=== PATIENT | male | born 1940 | race Caucasian/White ===

== ENCOUNTER 2016-11-30 01:27 | Emergency (ER) | payer MEDICARE, OTHER ==
[2016-11-30 02:08] LABS: CHLORIDE,CL 109 mmol/L (101-111); SODIUM,NA 143 mmol/L (135-145)
[2016-11-30] MEDS ORDERED: Metoprolol Tartrate 50 MG Tab PO ONE (02:27)
--- NOTE | 2016-11-30 02:34 | EDM.PDOC ---
ED HPI GENERAL MEDICAL PROBLEM - General Chief Complaint: Chest Pain Stated Complaint: ACID REFLUX, HEART RACING Time Seen by Provider: 11/30/16 01:40 Source of Information: Reports: Patient History Limitations: Reports: No Limitations - History of Present Illness INITIAL COMMENTS - FREE TEXT/NARRATIVE: c/o fast heart rate of 105 since 1030am and chest pain 2-08/27. States he was in clinic today and told nurse about it as is process of also being set up for studies for "acid reflux" He has been seen by cardiology 2-3 years ago for similar symptoms and was told to take 12.5mg of metoprolol when sx occur but has never taken Rx. Prior stress test in 2013 was negative and was told did not need to be seen again for at least 2 years. Tolerance for activity has not changed. States usually they do not last this long and have been relieved with vagal maneuver or drinking glass of ice water. Chest pain mid sternal , does not radiate. No sweating or nausea Pain constant and does not change with activity. Notes more prone to acid reflux every time he lies down at night and discomfort today is similar. Chest Pain Score (Numeric/FACES): 3 - Related Data Allergies Allergy/AdvReac Type Severity Reaction Status Date / Time No Known Allergies Allergy Verified 11/30/16 01:39 Home Meds: Home Meds Omeprazole [Prilosec] 40 mg PO BEDTIME 05/25/13 [History] Aspirin [Adult Low Dose Aspirin EC] 162.5 mg PO DAILY 11/03/13 [History] atorvaSTATin [Lipitor] 10 mg PO BEDTIME 11/03/13 [History] Multivitamin [Multiple Vitamins] 1 each PO DAILY 11/20/14 [History] Omeprazole 20 mg PO QAM 11/03/15 [History] Past Medical History HEENT History: Reports: Impaired Vision Other HEENT History: Wear corrective lenses Cardiovascular History: Reports: Afib, Arrhythmia, High Cholesterol Other Cardiovascular History: stress test Respiratory History: Reports: None Gastrointestinal History: Reports: GERD Genitourinary History: Reports: None Musculoskeletal History: Reports: None Neurological History: Reports: Other (See Below) Other Neuro History: Has had several CT's in past for left sided numbness, no Dx. Psychiatric History: Reports: None Endocrine/Metabolic History: Reports: None Hematologic History: Reports: None Immunologic History: Reports: None Oncologic (Cancer) History: Reports: None Dermatologic History: Reports: None - Past Surgical History GI Surgical History: Reports: Appendectomy, Cholecystectomy, Colonoscopy Social & Family History - Family History HEENT: Reports: None Cardiac: Reports: CAD Respiratory: Reports: None GI: Reports: None Musculoskeletal: Reports: None Neurological: Reports: None Psychiatric: Reports: None Endocrine/Metabolic: Reports: None Hematologic: Reports: None Immunologic: Reports: None Dermatologic: Reports: None Oncologic: Reports: None - Tobacco Use Smoking Status *Q: Never Smoker Second Hand Smoke Exposure: No - Caffeine Use Caffeine Use: Reports: Coffee, Soda Other Caffeine Use: none since Tuesday - Alcohol Use Days Per Week of Alcohol Use: 1 Number of Drinks Per Day: 2 Total Drinks Per Week: 2 - Recreational Drug Use Recreational Drug Use: No - Living Situation & Occupation Living situation: Reports: , with Spouse Occupation: Retired ED ROS GENERAL - Review of Systems Review Of Systems: See Below Constitutional: Reports: No Symptoms HEENT: Reports: No Symptoms Respiratory: Reports: No Symptoms Cardiovascular: Reports: Chest Pain, Other (rapid heart rate at 105) GI/Abdominal: Reports: No Symptoms Musculoskeletal: Reports: No Symptoms Skin: Reports: No Symptoms Neurological: Reports: No Symptoms Psychiatric: Reports: No Symptoms ED EXAM, GENERAL - Physical Exam Exam: See Below Exam Limited By: No Limitations General Appearance: Alert, No Apparent Distress, Anxious Eye Exam: Bilateral Eye: EOMI, PERRL Ears: Normal External Exam, Normal TMs Nose: Normal Inspection Throat/Mouth: Normal Inspection Head: Atraumatic, Normocephalic Neck: Normal Inspection. No: Carotid Bruit, Thyromegaly Respiratory/Chest: No Respiratory Distress, Lungs Clear, Normal Breath Sounds Cardiovascular: Normal Peripheral Pulses, Regular Rate, Rhythm, Tachycardia (98- 105 on admission) GI/Abdominal: Normal Bowel Sounds Back Exam: Full Range of Motion Extremities: Normal Inspection. No: Pedal Edema Neurological: Alert, Oriented, Normal Cognition Psychiatric: Normal Affect, Normal Mood, Anxious Skin Exam: Warm, Dry, Intact, Normal Color Course - Vital Signs Last Recorded V/S: Last Vital Signs Temp 96.8 F 11/30/16 01:39 Pulse 79 11/30/16 02:34 Resp 16 11/30/16 02:19 BP 131/71 11/30/16 02:34 Pulse Ox 98 11/30/16 02:19 - Orders/Labs/Meds Orders: Active Orders 24 hr Category Date Time Status EKG 12 Lead [EKG Documentation Completion] [RC] STAT Care 11/30/16 01:48 Active Labs: Laboratory Tests 11/30/16 11/30/16 Range/Units 01:43 01:43 WBC 5.7 (5.0-10.0) 10^3/uL RBC 4.10 L (4.6-6.2) 10^6/uL Hgb 13.2 L (14.0-18.0) g/dL Hct 38.5 L (40.0-54.0) % MCV 93.9 (80-100) fL MCH 32.2 (27.0-34.0) pg MCHC 34.3 (33.0-35.0) g/dL Plt Count 157 (150-450) 10^3/uL Neut % (Auto) 55.4 (42.2-75.2) % Lymph % (Auto) 28.9 (20.5-50.1) % Noble % (Auto) 11.6 H (2-8) % Eos % (Auto) 3.9 H (1.0-3.0) % Baso % (Auto) 0.2 (0.0-1.0) % Sodium 143 (135-145) mmol/L Potassium 4.0 (3.6-5.0) mmol/L Chloride 109 (101-111) mmol/L Carbon Dioxide 25.0 (21.0-31.0) mmol/L Anion Gap 13.0 BUN 22 H (7-18) mg/dL Creatinine 1.0 (0.6-1.3) mg/dL Est Cr Clr Drug Dosing 69.03 mL/min Estimated GFR (MDRD) > 60 BUN/Creatinine Ratio 22.00 Glucose 104 (74-105) mg/dL Calcium 9.2 (8.4-10.2) mg/dl Total Bilirubin 0.7 (0.2-1.0) mg/dL AST 27 (10-42) IU/L ALT 27 (10-60) IU/L Alkaline Phosphatase 66 (42-121) IU/L Troponin I < 0.02 (0.00-0.02) ng/ml Total Protein 6.7 (6.7-8.2) g/dl Albumin 4.2 (3.2-5.5) g/dl Globulin 2.5 Albumin/Globulin Ratio 1.68 Meds: Medications Discontinued Medications Generic Name Dose Route Start Last Admin Trade Name Franky PRN Reason Stop Dose Admin Metoprolol Tartrate 12.5 mg 11/30/16 02:27 11/30/16 02:34 Lopressor PO 11/30/16 02:28 12.5 mg ONETIME ONE Administration - Radiology Interpretation Free Text/Narrative:: CXR no active disease with comment of ectatic aorta. Comparison with previous on 07/06/2015 - Re-Assessments/Exams Free Text/Narrative Re-Assessment/Exam: 11/30/16 03:40 EKG reviewed with patient and reassurance no critical abnormality. HR decreased 70's and maintained. Pain resolved with decreased HR. Labs unremarkable. Troponin negative. Initiated on low dose metoprolol. Instructed patient to follow up if recurrent pain associated with sweating or nausea. Departure - Departure Time of Disposition: 02:28 Disposition: Home, Self-Care 01 Condition: good Clinical Impression: Anxiety, Tachycardia, Chest discomfort Instructions: Nonspecific Chest Pain, Sinus Tachycardia Referrals: Mt Yung MD [Primary Care Provider] - Forms: ED Department Discharge Additional Instructions: metoprolol 12.5mg daily follow with Dr. Yung this week for recheck follow up sooner if SOB, chest pain and continued fast heart rate keep hydrated limit caffeine use - My Orders Last 24 Hours: My Active Orders 11/30/16 01:48 EKG 12 Lead [EKG Documentation Completion] [RC] STAT - Assessment/Plan Last 24 Hours: My Active Orders 11/30/16 01:48 EKG 12 Lead [EKG Documentation Completion] [RC] STAT
[2016-11-30 02:35] VITALS: BP 131/71
--- NOTE | 2016-12-01 13:41 | EKG ---
11/30/2016- AYE RAMIREZ - EKG per my reading shows sinus rhythm at a rate of 99. [facility] /[id number]
== END 2016-11-30 02:46 | disposition home or self-care (01) ==
LOC: DL.ED 01:27
DX: R00.0 Tachycardia, unspecified (principal); R07.89 Other chest pain; F41.9 Anxiety disorder, unspecified; K21.9 Gastro-esophageal reflux disease without esophagitis; I48.91 Unspecified atrial fibrillation; E78.00 Pure hypercholesterolemia, unspecified; Z79.82 Long term (current) use of aspirin; Z79.899 Other long term (current) drug therapy; Z90.49 Acquired absence of other specified parts of digestive tract
CPT/HCPCS: 36415; 71010; 80053; 84484; 85025; 93005; 93010; 99283; 99285; A9270

== ENCOUNTER 2016-12-28 06:04 | Day surgery (SDC) | payer MEDICARE, OTHER ==
[~2016-12-28 06:04] MED LIST: Dextrose 5%-0.45% NaCl 1,000 ML IV SCH; Sodium Chloride 0.9% 10 ML Syringe FLUSH PRN
[2016-12-28] MEDS ORDERED: fentaNYL 100 MCG/2 ML SDV ONE (06:12)
[2016-12-28] MEDS ORDERED: Midazolam 1 MG/ML 2 ML SDV ONE (06:12)
[2016-12-28] MEDS ORDERED: fentaNYL 100 MCG/2 ML SDV IV ONE ×3 (07:36→14:44)
[2016-12-28] MEDS ORDERED: Midazolam 1 MG/ML 2 ML SDV IV ONE ×6 (07:37→14:44)
[2016-12-28 08:25] VITALS: BP 137/74
--- NOTE | 2016-12-28 13:28 | OR ---
DATE: 12/28/2016 PROCEDURE: Total colonoscopy. INSTRUMENT USED: CF-H180AL Olympus video colonoscope. PREMEDICATIONS: Fentanyl 100 mcg intravenous, Versed 3 mg intravenous. Nasal 2 L O2 cannula. The procedure was done under pulse oximetry, BP recording, and facilities custodian. INDICATION: The patient with previous colonic adenoma. Surveillance colonoscopic examination is done for detection of any polypoid lesions and removal, endoscopic hemostasis therapy if needed. Initial rectal exam was unremarkable. Rigid anoscopy was normal. DESCRIPTION OF PROCEDURE: The colonoscope was passed with ease. Numerous scattered diverticula were noted in the distal left colon. The scope was passed with ease up to the ileocecal area, photographs were taken of the normal- appearing cecum, identified by landmarks of appendiceal orifice and double- bulged ileocecal folds. No bleeding was noted from any of the visualized areas at the commencement of the examination. No stricture. No vascular ectasia. No large isolated ulceration seen. No evidence of diffuse inflammatory bowel disease in the form of friability, contact bleeding, or ulcerations. No polyp or tumor mass identified. Probing the proximal sides of folds and flexures using adequate distention and clearing up the stool material, withdrawal of the scope was made, cecum to rectum time over 6 minutes. No bleeding was noted from any of the visualized areas at the completion of examination. IMPRESSION: Diverticulosis. The patient tolerated the procedure well. [facility] /[id number]
== END 2016-12-28 09:57 | disposition home or self-care (01) ==
LOC: DL.ENDO 06:04
PROVIDERS: ATTEND Internal Medicine Gastroenterology
DX: Z12.11 Encounter for screening for malignant neoplasm of colon (principal); Z85.038 Personal history of other malignant neoplasm of large intestine; K57.30 Diverticulosis of large intestine without perforation or abscess without bleeding; K21.9 Gastro-esophageal reflux disease without esophagitis; F41.1 Generalized anxiety disorder
CPT/HCPCS: G0105; J2250; J3010; J7042

== ENCOUNTER 2017-05-24 09:30 | Emergency (ER) | payer MEDICARE, OTHER ==
--- NOTE | 2017-05-24 09:46 | EDM.PDOC ---
ED HPI GENERAL MEDICAL PROBLEM - General Chief Complaint: Neuro Symptoms/Deficits Stated Complaint: LOWER ARM/SHOULDER/HAND NUMB, [id number] Time Seen by Provider: 05/24/17 09:45 Source of Information: Reports: Patient, Old Records, RN, RN Notes Reviewed History Limitations: Reports: No Limitations - History of Present Illness INITIAL COMMENTS - FREE TEXT/NARRATIVE: Arrives from home by POV with c/o that he woke this morning on his left side and since waking feels numbness from the left shoulder and scapula to the left 4th & 5th fingers. Denies neck pain or injury. Has history of chronic left sided numbness that he has had extensive evaluation for, and even went to [facility] in [place], but no one could ever determine why he has it. The numbness he c/ o today is different in that it only goes to the 4th & 5th fingers. Denies any motor weakness, headache, facial droop, visual changes, speech changes, or difficulty swallowing. Denies any left torso or lower extremity numbness that is different from his baseline. Onset: Today Duration: Constant Quality: Reports: Other (numbness only, no pain) Severity: Moderate Improves with: Reports: None Worsens with: Reports: None Associated Symptoms: Reports: No Other Symptoms - Related Data Allergies Allergy/AdvReac Type Severity Reaction Status Date / Time No Known Allergies Allergy Verified 05/24/17 09:43 Home Meds: Home Meds Omeprazole [Prilosec] 40 mg PO ACBREAKFAST 05/25/13 [History] Aspirin [Adult Low Dose Aspirin EC] 162.5 mg PO BID 11/03/13 [History] atorvaSTATin [Lipitor] 10 mg PO BEDTIME 11/03/13 [History] Multivitamin [Multiple Vitamins] 1 each PO DAILY 11/20/14 [History] Omeprazole 20 mg PO BEDTIME 11/03/15 [History] Nitroglycerin [IJP: Nitroglycerin] 1 tab SL ASDIRECTED 12/24/16 [History] Past Medical History HEENT History: Reports: Impaired Vision Other HEENT History: Wear corrective lenses Cardiovascular History: Reports: Afib, Arrhythmia, CAD, High Cholesterol Other Cardiovascular History: stress test Respiratory History: Reports: None Gastrointestinal History: Reports: Colon Polyp, Diverticulosis, GERD, Irritable Bowel Syndrome, Other (See Below) Other Gastrointestinal History: GASTRIC EROSIONS. 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 Psychiatric History: Reports: Anxiety, Panic Attack Endocrine/Metabolic History: Reports: None Hematologic History: Reports: Anemia Immunologic History: Reports: None Oncologic (Cancer) History: Reports: None Dermatologic History: Reports: None - Infectious Disease History Infectious Disease History: Reports: Chicken Pox, Measles, Mumps - Past Surgical History GI Surgical History: Reports: Appendectomy, Cholecystectomy, Colonoscopy, EGD Other GI Surgeries/Procedures: hemorrohid repair Social & Family History - Family History HEENT: Reports: None Cardiac: Reports: CAD Respiratory: Reports: None GI: Reports: None Musculoskeletal: Reports: None Neurological: Reports: None Psychiatric: Reports: None Endocrine/Metabolic: Reports: None Hematologic: Reports: None Immunologic: Reports: None Dermatologic: Reports: None Oncologic: Reports: None - Tobacco Use Smoking Status *Q: Never Smoker Second Hand Smoke Exposure: No - Caffeine Use Caffeine Use: Reports: Coffee, Soda Other Caffeine Use: none since Tuesday - Alcohol Use Days Per Week of Alcohol Use: 1 Number of Drinks Per Day: 2 Total Drinks Per Week: 2 - Recreational Drug Use Recreational Drug Use: No - Living Situation & Occupation Living situation: Reports: , with Spouse Occupation: Retired ED ROS GENERAL - Review of Systems Review Of Systems: ROS reveals no pertinent complaints other than HPI. ED EXAM, NEURO - Physical Exam Exam: See Below Exam Limited By: No Limitations General Appearance: Alert, WD/WN, No Apparent Distress, Anxious Eye Exam: Bilateral Eye: EOMI, Normal Inspection, PERRL Ears: Normal External Exam, Hearing Grossly Normal Nose: Normal Inspection Throat/Mouth: Normal Inspection, Normal Voice Head Exam: Atraumatic, Normocephalic Neck: Normal Inspection, Supple, Non-Tender, Full Range of Motion. No: Lymphadenopathy (L), Lymphadenopathy (R) Respiratory/Chest: No Respiratory Distress, Lungs Clear, Normal Breath Sounds, No Accessory Muscle Use, Chest Non-Tender Cardiovascular: Normal Peripheral Pulses, Regular Rate, Rhythm Neurological: Alert, Normal Dorsiflexion, CN II-XII Intact, Normal Plantar Flexion, Normal Gait, Oriented x 3, Abnormal Sensation (in ulnar nerve distrbution of the left upper extremity including the 4th & 5th digits). No: Tremor Back Exam: Normal Inspection, Full Range of Motion Extremities: Normal Inspection, Normal Range of Motion, Non-Tender, No Pedal Edema, Normal Capillary Refill Psychiatric: Anxious Skin Exam: Warm, Dry, Intact, Normal Color, No Rash Course - Vital Signs Last Recorded V/S: Last Vital Signs Temp 37.0 C 05/24/17 09:45 Pulse 80 05/24/17 09:45 Resp 18 05/24/17 09:45 BP 130/70 05/24/17 09:45 Pulse Ox 100 05/24/17 09:45 - Orders/Labs/Meds Orders: Active Orders 24 hr Category Date Time Status Cervical Spine 2V or 3V [CR] Urgent Exams 05/24/17 09:58 Ordered - Radiology Interpretation Free Text/Narrative:: Xray C-spine: no fx's, chronic degenerative changes/DDD; See Rad. report. Departure - Departure Time of Disposition: 10:19 Disposition: Home, Self-Care 01 Condition: Good Clinical Impression: Cervical radiculopathy due to degenerative joint disease of spine - Discharge Information Instructions: Cervical Radiculopathy, [id number], Degenerative Disk Disease Forms: ED Department Discharge Additional Instructions: Activity as tolerated. Follow up in clinic with your primary doctor if the numbness is persistent or worsens. - My Orders Last 24 Hours: My Active Orders 05/24/17 09:58 Cervical Spine 2V or 3V [CR] Urgent - Assessment/Plan Last 24 Hours: My Active Orders 05/24/17 09:58 Cervical Spine 2V or 3V [CR] Urgent
[2017-05-24 09:47] VITALS: BP 130/70
--- NOTE | 2017-05-24 10:25 | CR ---
Clinical history: 77-year-old male with left upper extremity radiculopathy who was reported on previo us MRI exam 12 December 2014 to have "multilevel degenerative changes with no spinal cord compression (ne ural foraminal stenosis most significant on the right at the C5-6 level). Multi facet joint arthropat hy." Interpretation: Abnormal. Dense reactive atlantoaxial sclerosis. No sign of pathologic skeletal lesion, prevertebral soft tissue swelling, cervical fracture or spondy lolisthesis. Extensive facet joint arthropathy (dense reactive sclerosis and narrowing of the joints) nearly all l evels. *Abnormal interspace narrowing, endplate sclerosis and hypertrophic marginal/uncinate spondylosis C5- 6 and C6-C7 levels. No cervical rib anomalies. Lung apices clear. 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 No fract ure or dislocation.
== END 2017-05-24 10:26 | disposition home or self-care (01) ==
LOC: DL.ED 09:30
DX: M47.22 Other spondylosis with radiculopathy, cervical region (principal); E78.00 Pure hypercholesterolemia, unspecified; Z79.82 Long term (current) use of aspirin; Z79.899 Other long term (current) drug therapy
CPT/HCPCS: 72040; 99283

== ENCOUNTER 2017-10-12 20:46 | Emergency (ER) | payer MEDICARE, OTHER ==
--- NOTE | 2017-10-12 21:22 | EDM.PDOC ---
<Tom Thomas - Last Filed: 10/13/17 00:48> ED HPI GENERAL MEDICAL PROBLEM - General Chief Complaint: Cardiovascular Problem Stated Complaint: [id number] LONG PAUSE IN HEART BEATS Time Seen by Provider: 10/12/17 21:00 Source of Information: Reports: Patient History Limitations: Reports: No Limitations - History of Present Illness INITIAL COMMENTS - FREE TEXT/NARRATIVE: Patient presents with feeling like his heart is skipping a beat. This began this evening. He reports he had a busy day, only eating breakfast. He was active all day. He had one beer before leaving an event and one mixed drink this evening. Following this he went to the bathroom and noted an abnormal heart beat. He was concerned because he has a history of a tachyarrhythmia and has been on metoprolol for this. He reports he took his pulse and noted it to have intermittent pauses which he has not had before. He denies lightheadedness or dizziness. No syncope. No chest pain or shortness of breath. No symptoms with exertion. No history of heart attack or stroke. Family history of heart attack at early age in his father. - Related Data Allergies Allergy/AdvReac Type Severity Reaction Status Date / Time No Known Allergies Allergy Verified 10/12/17 21:44 Home Meds: Home Meds Omeprazole [Prilosec] 40 mg PO ACBREAKFAST 05/25/13 [History] Aspirin [Adult Low Dose Aspirin EC] 162.5 mg PO BID 11/03/13 [History] atorvaSTATin [Lipitor] 10 mg PO BEDTIME 11/03/13 [History] Multivitamin [Multiple Vitamins] 1 each PO DAILY 11/20/14 [History] Omeprazole 20 mg PO BEDTIME 11/03/15 [History] Nitroglycerin [IJP: Nitroglycerin] 1 tab SL ASDIRECTED 12/24/16 [History] Metoprolol Succinate [Toprol XL] 25 mg PO DAILY 10/12/17 [History] Past Medical History HEENT History: Reports: Impaired Vision Other HEENT History: Wear corrective lenses Cardiovascular History: Reports: Afib, Arrhythmia, CAD, High Cholesterol Other Cardiovascular History: stress test Respiratory History: Reports: None Gastrointestinal History: Reports: Colon Polyp, Diverticulosis, GERD, Irritable Bowel Syndrome, Other (See Below) Other Gastrointestinal History: GASTRIC EROSIONS. 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 Psychiatric History: Reports: Anxiety, Panic Attack Endocrine/Metabolic History: Reports: None Hematologic History: Reports: Anemia Immunologic History: Reports: None Oncologic (Cancer) History: Reports: None Dermatologic History: Reports: None - Infectious Disease History Infectious Disease History: Reports: Chicken Pox, Measles, Mumps - Past Surgical History GI Surgical History: Reports: Appendectomy, Cholecystectomy, Colonoscopy, EGD Other GI Surgeries/Procedures: hemorrohid repair Social & Family History - Family History Family Medical History: Noncontributory HEENT: Reports: None Cardiac: Reports: CAD Respiratory: Reports: None GI: Reports: None Musculoskeletal: Reports: None Neurological: Reports: None Psychiatric: Reports: None Endocrine/Metabolic: Reports: None Hematologic: Reports: None Immunologic: Reports: None Dermatologic: Reports: None Oncologic: Reports: None - Tobacco Use Smoking Status *Q: Never Smoker Second Hand Smoke Exposure: No - Caffeine Use Caffeine Use: Reports: Coffee, Soda Other Caffeine Use: none since Tuesday - Alcohol Use Days Per Week of Alcohol Use: 1 Number of Drinks Per Day: 2 Total Drinks Per Week: 2 - Recreational Drug Use Recreational Drug Use: No - Living Situation & Occupation Living situation: Reports: , with Spouse Occupation: Retired ED ROS GENERAL - Review of Systems Review Of Systems: ROS reveals no pertinent complaints other than HPI. ED EXAM, GENERAL - Physical Exam Exam: See Below Exam Limited By: No Limitations General Appearance: Alert, WD/WN, No Apparent Distress Ears: Normal External Exam, Normal Canal, Hearing Grossly Normal Nose: Normal Inspection, Normal Mucosa, No Blood Throat/Mouth: Normal Inspection, Normal Lips, Normal Oropharynx, No Airway Compromise Head: Atraumatic, Normocephalic Neck: Normal Inspection, Supple, Non-Tender, Full Range of Motion Respiratory/Chest: No Respiratory Distress, Lungs Clear, Normal Breath Sounds, No Accessory Muscle Use, Chest Non-Tender Cardiovascular: Regular Rate, Rhythm, No Murmur GI/Abdominal: Normal Bowel Sounds, Soft, Non-Tender, No Distention (Male) Exam: Deferred Back Exam: Normal Inspection. No: Muscle Spasm Extremities: Normal Inspection, Non-Tender Neurological: Alert, Oriented, CN II-XII Intact Psychiatric: Normal Affect, Normal Mood Skin Exam: Warm, Dry, Intact Lymphatic: No Adenopathy EKG INTERPRETATION EKG Date: 10/12/17 Time: 20:54 Rhythm: NSR Rate (Beats/Min): 77 EKG Interpretation Comments: Two PVC's present. Course - Vital Signs Last Recorded V/S: Last Vital Signs Temp 98.6 F 10/13/17 01:59 Pulse 79 10/13/17 01:59 Resp 16 10/13/17 01:59 BP 143/74 H 10/13/17 01:59 Pulse Ox 99 10/13/17 01:59 - Orders/Labs/Meds Labs: Laboratory Tests 10/12/17 10/12/17 10/12/17 Range/Units 21:32 21:32 21:32 WBC 6.4 (5.0-10.0) 10^3/uL RBC 3.98 L (4.6-6.2) 10^6/uL Hgb 12.8 L (14.0-18.0) g/dL Hct 37.5 L (40.0-54.0) % MCV 94.2 (80-100) fL MCH 32.2 (27.0-34.0) pg MCHC 34.1 (33.0-35.0) g/dL Plt Count 143 L (150-450) 10^3/uL Neut % (Auto) 54.4 (42.2-75.2) % Lymph % (Auto) 31.0 (20.5-50.1) % [place] % (Auto) 11.1 H (2-8) % Eos % (Auto) 3.3 H (1.0-3.0) % Baso % (Auto) 0.2 (0.0-1.0) % Sodium 138 (135-145) mmol/L Potassium 3.2 L (3.6-5.0) mmol/L Chloride 107 (101-111) mmol/L Carbon Dioxide 25.0 (21.0-31.0) mmol/L Anion Gap 9.2 BUN 20 H (7-18) mg/dL Creatinine 1.0 (0.6-1.3) mg/dL Est Cr Clr Drug Dosing 70.06 mL/min Estimated GFR (MDRD) > 60 BUN/Creatinine Ratio 20.00 Glucose 92 (74-105) mg/dL Calcium 8.9 (8.4-10.2) mg/dl Magnesium 2.1 (1.8-2.5) mg/dL Total Bilirubin 0.8 (0.2-1.0) mg/dL AST 27 (10-42) IU/L ALT 27 (10-60) IU/L Alkaline Phosphatase 51 (42-121) IU/L Troponin I < 0.02 (0.00-0.02) ng/ml Total Protein 7.0 (6.7-8.2) g/dl Albumin 4.2 (3.2-5.5) g/dl Globulin 2.8 Albumin/Globulin Ratio 1.50 04/26/18 Range/Units 01:30 WBC (5.0-10.0) 10^3/uL RBC (4.6-6.2) 10^6/uL Hgb (14.0-18.0) g/dL Hct (40.0-54.0) % MCV (80-100) fL MCH (27.0-34.0) pg MCHC (33.0-35.0) g/dL Plt Count (150-450) 10^3/uL Neut % (Auto) (42.2-75.2) % Lymph % (Auto) (20.5-50.1) % [place] % (Auto) (2-8) % Eos % (Auto) (1.0-3.0) % Baso % (Auto) (0.0-1.0) % Sodium (135-145) mmol/L Potassium 3.8 (3.6-5.0) mmol/L Chloride (101-111) mmol/L Carbon Dioxide (21.0-31.0) mmol/L Anion Gap BUN (7-18) mg/dL Creatinine (0.6-1.3) mg/dL Est Cr Clr Drug Dosing mL/min Estimated GFR (MDRD) BUN/Creatinine Ratio Glucose (74-105) mg/dL Calcium (8.4-10.2) mg/dl Magnesium (1.8-2.5) mg/dL Total Bilirubin (0.2-1.0) mg/dL AST (10-42) IU/L ALT (10-60) IU/L Alkaline Phosphatase (42-121) IU/L Troponin I < 0.02 (0.00-0.02) ng/ml Total Protein (6.7-8.2) g/dl Albumin (3.2-5.5) g/dl Globulin Albumin/Globulin Ratio Meds: Medications Discontinued Medications Generic Name Dose Route Start Last Admin Trade Name Freq PRN Reason Stop Dose Admin Potassium Chloride 20 meq 10/12/17 22:01 10/12/17 22:16 Klor-Con 10 PO 10/12/17 22:02 20 meq ONETIME ONE Administration - Re-Assessments/Exams Free Text/Narrative Re-Assessment/Exam: Extended ED visit. Benny shen. Telemetry. 10/13/17 00:49 Departure - Departure Disposition: Home, Self-Care 01 Clinical Impression: Heart palpitations, Hypokalemia Instructions: Hypokalemia Referrals: Miracle Whitney PA [Primary Care Provider] - Forms: ED Department Discharge Additional Instructions: light activity follow up in clinic Tuesday to recheck potassium Urgent follow up if chest pain <Lisbeth Andres - Last Filed: 10/13/17 05:39> Course - Re-Assessments/Exams Free Text/Narrative Re-Assessment/Exam: 10/13/17 05:37 Repeat troponin negative. Remains pain free. Has not noted recent palpations. Departure - Departure Time of Disposition: 02:20 Condition: Good
[2017-10-12 21:53] LABS: CHLORIDE,CL 107 mmol/L (101-111); SODIUM,NA 138 mmol/L (135-145)
[2017-10-12] MEDS: Potassium Chloride 10 MEQ Tab.ER PO ONE (22:16)
[2017-10-13 02:00] VITALS: BP 143/74
--- NOTE | 2017-10-17 09:50 | EKG ---
10/12/2017 - AYE RAMIREZ - FINDINGS: This 12-lead EKG shows normal sinus rhythm with no significant ST elevation or ST depression noted on this 12-lead EKG. Nonspecific ST-T wave changes noted on leads aVL and aVF with possible premature ventricular complexes. Heart rate of 77, TX interval of 204, QTc 453. [facility] /[id number]
== END 2017-10-13 02:30 | disposition home or self-care (01) ==
LOC: DL.ED 20:46
DX: R00.2 Palpitations (principal); E87.6 Hypokalemia; I48.91 Unspecified atrial fibrillation; Z79.899 Other long term (current) drug therapy
CPT/HCPCS: 36415; 80053; 83735; 84132; 84484; 85025; 99284; A9270

== ENCOUNTER 2017-10-17 13:05 | Emergency (ER) | payer MEDICARE, OTHER ==
[2017-10-17 14:17] VITALS: BP 133/71
--- NOTE | 2017-10-17 15:01 | EDM.PDOC ---
ED HPI GENERAL MEDICAL PROBLEM - General Chief Complaint: Neuro Symptoms/Deficits Stated Complaint: LEFT ARM NUMB Time Seen by Provider: 10/17/17 14:16 Source of Information: Reports: Patient History Limitations: Reports: No Limitations - History of Present Illness INITIAL COMMENTS - FREE TEXT/NARRATIVE: This 77 yo male patient reports to the ED with left sided arm numbness. The patient reports that he woke up this morning with bilateral arm numbness. The patient reports his right arm feels better now, but continues to have a little numbness in his left arm. The patient reports that he was seen in the ED last week for a lower potassium level. The patient reports that he does not have any additional symptoms at this time. Onset: Today Onset Date: 10/17/17 Onset Time: 08:00 Duration: Constant, Improving Location: Reports: Upper Extremity, Left Quality: Reports: Dull Severity: Mild Improves with: Reports: None Worsens with: Reports: None Associated Symptoms: Reports: No Other Symptoms - Related Data Allergies Allergy/AdvReac Type Severity Reaction Status Date / Time No Known Allergies Allergy Verified 10/17/17 13:24 Home Meds: Home Meds Omeprazole [Prilosec] 40 mg PO ACBREAKFAST 05/25/13 [History] Aspirin [Adult Low Dose Aspirin EC] 162.5 mg PO BID 11/03/13 [History] atorvaSTATin [Lipitor] 10 mg PO BEDTIME 11/03/13 [History] Multivitamin [Multiple Vitamins] 1 each PO DAILY 11/20/14 [History] Omeprazole 20 mg PO BEDTIME 11/03/15 [History] Nitroglycerin [IJP: Nitroglycerin] 1 tab SL ASDIRECTED 12/24/16 [History] Metoprolol Succinate [Toprol XL] 25 mg PO DAILY 10/12/17 [History] Cholecalciferol (Vitamin D3) [Vitamin D3] 1,000 unit PO DAILY 10/17/17 [History] Past Medical History HEENT History: Reports: Impaired Vision Other HEENT History: Wear corrective lenses Cardiovascular History: Reports: Afib, Arrhythmia, CAD, High Cholesterol Other Cardiovascular History: stress test Respiratory History: Reports: None Gastrointestinal History: Reports: Colon Polyp, Diverticulosis, GERD, Irritable Bowel Syndrome, Other (See Below) Other Gastrointestinal History: GASTRIC EROSIONS. 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 Psychiatric History: Reports: Anxiety, Panic Attack Endocrine/Metabolic History: Reports: None Hematologic History: Reports: Anemia Immunologic History: Reports: None Oncologic (Cancer) History: Reports: None Dermatologic History: Reports: None - Infectious Disease History Infectious Disease History: Reports: Chicken Pox, Measles, Mumps - Past Surgical History GI Surgical History: Reports: Appendectomy, Cholecystectomy, Colonoscopy, EGD Other GI Surgeries/Procedures: hemorrohid repair Social & Family History - Family History Family Medical History: Noncontributory HEENT: Reports: None Cardiac: Reports: CAD Respiratory: Reports: None GI: Reports: None Musculoskeletal: Reports: None Neurological: Reports: None Psychiatric: Reports: None Endocrine/Metabolic: Reports: None Hematologic: Reports: None Immunologic: Reports: None Dermatologic: Reports: None Oncologic: Reports: None - Tobacco Use Smoking Status *Q: Never Smoker Second Hand Smoke Exposure: No - Caffeine Use Caffeine Use: Reports: Coffee Other Caffeine Use: none since Tuesday - Alcohol Use Days Per Week of Alcohol Use: 1 Number of Drinks Per Day: 2 Total Drinks Per Week: 2 - Recreational Drug Use Recreational Drug Use: No - Living Situation & Occupation Living situation: Reports: , with Spouse Occupation: Retired ED ROS GENERAL - Review of Systems Review Of Systems: ROS reveals no pertinent complaints other than HPI. ED EXAM, GENERAL - Physical Exam Exam: See Below Exam Limited By: No Limitations General Appearance: Alert, WD/WN, Mild Distress Eye Exam: Bilateral Eye: EOMI, Normal Inspection, PERRL Ears: Normal External Exam, Normal Canal, Hearing Grossly Normal, Normal TMs Nose: Normal Inspection, Normal Mucosa, No Blood Throat/Mouth: Normal Inspection, Normal Lips, Normal Teeth, Normal Gums, Normal Oropharynx, Normal Voice, No Airway Compromise Head: Atraumatic, Normocephalic Neck: Normal Inspection, Supple, Non-Tender, Full Range of Motion Respiratory/Chest: No Respiratory Distress, Lungs Clear, Normal Breath Sounds, No Accessory Muscle Use, Chest Non-Tender Cardiovascular: Normal Peripheral Pulses, Regular Rate, Rhythm, No Edema, No Gallop, No JVD, No Murmur, No Rub GI/Abdominal: Normal Bowel Sounds, Soft, Non-Tender, No Organomegaly, No Distention, No Abnormal Bruit, No Mass (Male) Exam: Deferred Rectal (Males) Exam: Deferred Back Exam: Normal Inspection, Full Range of Motion, NT Extremities: Normal Inspection, Normal Range of Motion, Non-Tender, Normal Capillary Refill, No Pedal Edema Neurological: Alert, Oriented, CN II-XII Intact, Normal Cognition, Normal Gait, No Motor/Sensory Deficits Psychiatric: Normal Affect, Normal Mood Skin Exam: Warm, Dry, Intact, Normal Color, No Rash Lymphatic: No Adenopathy Course - Vital Signs Last Recorded V/S: Last Vital Signs Temp 37.0 C 10/17/17 14:16 Pulse 71 10/17/17 14:16 Resp 18 10/17/17 14:16 BP 133/71 10/17/17 14:16 Pulse Ox 100 10/17/17 14:16 - Orders/Labs/Meds Orders: Active Orders 24 hr Category Date Time Status EKG Documentation Completion [RC] URGENT Care 10/17/17 14:22 Active Chest 1V Frontal [CR] Urgent Exams 10/17/17 14:22 Taken Labs: Laboratory Tests 10/17/17 10/17/17 Range/Units 14:30 14:30 WBC 4.6 L (5.0-10.0) 10^3/uL RBC 4.05 L (4.6-6.2) 10^6/uL Hgb 13.2 L (14.0-18.0) g/dL Hct 38.6 L (40.0-54.0) % MCV 95.3 (80-100) fL MCH 32.6 (27.0-34.0) pg MCHC 34.2 (33.0-35.0) g/dL Plt Count 148 L (150-450) 10^3/uL Neut % (Auto) 59.7 (42.2-75.2) % Lymph % (Auto) 26.3 (20.5-50.1) % [place] % (Auto) 11.6 H (2-8) % Eos % (Auto) 2.0 (1.0-3.0) % Baso % (Auto) 0.4 (0.0-1.0) % Sodium 137 (135-145) mmol/L Potassium 3.8 (3.6-5.0) mmol/L Chloride 104 (101-111) mmol/L Carbon Dioxide 27.0 (21.0-31.0) mmol/L Anion Gap 9.8 BUN 16 (7-18) mg/dL Creatinine 1.1 (0.6-1.3) mg/dL Est Cr Clr Drug Dosing 61.80 mL/min Estimated GFR (MDRD) > 60 BUN/Creatinine Ratio 14.54 Glucose 90 (74-105) mg/dL Calcium 9.1 (8.4-10.2) mg/dl Total Bilirubin 1.0 (0.2-1.0) mg/dL AST 25 (10-42) IU/L ALT 24 (10-60) IU/L Alkaline Phosphatase 60 (42-121) IU/L Troponin I < 0.02 (0.00-0.02) ng/ml Total Protein 7.1 (6.7-8.2) g/dl Albumin 4.1 (3.2-5.5) g/dl Globulin 3.0 Albumin/Globulin Ratio 1.37 Departure - Departure Time of Disposition: 15:25 Disposition: Home, Self-Care 01 Condition: Good Clinical Impression: Peripheral neuropathic pain - Discharge Information Forms: ED Department Discharge Care Plan Goals: The patient was advised of the examination, lab, EKG and x-ray results during the visit. The patient was encouraged to continue to monitor his symptoms. If the patient has any additional symptoms or concerns, the patient should follow- up with her primary care facility or return to the emergency department. - My Orders Last 24 Hours: My Active Orders 10/17/17 14:22 EKG Documentation Completion [RC] URGENT Chest 1V Frontal [CR] Urgent - Assessment/Plan Last 24 Hours: My Active Orders 10/17/17 14:22 EKG Documentation Completion [RC] URGENT Chest 1V Frontal [CR] Urgent
[2017-10-17 15:07] LABS: CHLORIDE,CL 104 mmol/L (101-111); SODIUM,NA 137 mmol/L (135-145)
--- NOTE | 2017-10-17 15:53 | CR ---
Clinical history: 77-year-old male with cardiac arrhythmia and left arm numbness. Peripheral neuropat hy? Cardiac disease? Upright AP portable chest film unchanged since 30 November 2016 comparison film. Chronic shaggy bronchitic pattern but normal cardiac silhouette without new cephalization of flow, si gns of alveolar edema or dependent pleural effusion. No new lung mass, hilar lymphadenopathy or focal lobar pneumonia. No pneumothorax. CONCLUSION: No acute new cardiopulmonary abnormality since November 2016.
--- NOTE | 2017-10-19 16:12 | EKG ---
10/17/2017 - AYE RAMIREZ - TIME: 2:24 p.m. FINDINGS: Sinus rhythm. Borderline left axis deviation. [facility] /[id number]
== END 2017-10-17 15:47 | disposition home or self-care (01) ==
LOC: DL.ED 13:05
DX: M79.2 Neuralgia and neuritis, unspecified (principal); I25.10 Atherosclerotic heart disease of native coronary artery without angina pectoris; E78.00 Pure hypercholesterolemia, unspecified; Z79.899 Other long term (current) drug therapy
CPT/HCPCS: 36415; 71045; 80053; 84484; 85025; 93005; 93010; 99283; 99284

== ENCOUNTER 2017-10-23 21:56 | Emergency (ER) | payer MEDICARE, OTHER ==
[2017-10-23 22:03] VITALS: BP 133/87
--- NOTE | 2017-10-23 22:19 | EDM.PDOC ---
ED HPI GENERAL MEDICAL PROBLEM - General Chief Complaint: Cardiovascular Problem Stated Complaint: SICK [id number] Time Seen by Provider: 10/23/17 22:16 Source of Information: Reports: Patient History Limitations: Reports: No Limitations - History of Present Illness INITIAL COMMENTS - FREE TEXT/NARRATIVE: states 3rd visit past 10 days only found low potassium problem, was Tx but still having skipped beats and not feel well. cardio in [place] hadn't seen him for a year now. Right Chest Pain Score (Numeric/FACES): 3 - Related Data Allergies Allergy/AdvReac Type Severity Reaction Status Date / Time No Known Allergies Allergy Verified 10/17/17 13:24 Home Meds: Home Meds Omeprazole [Prilosec] 40 mg PO ACBREAKFAST 05/25/13 [History] Aspirin [Adult Low Dose Aspirin EC] 162.5 mg PO BID 11/03/13 [History] atorvaSTATin [Lipitor] 10 mg PO BEDTIME 11/03/13 [History] Multivitamin [Multiple Vitamins] 1 each PO DAILY 11/20/14 [History] Omeprazole 20 mg PO BEDTIME 11/03/15 [History] Nitroglycerin [IJP: Nitroglycerin] 1 tab SL ASDIRECTED 12/24/16 [History] Metoprolol Succinate [Toprol XL] 25 mg PO DAILY 10/12/17 [History] Cholecalciferol (Vitamin D3) [Vitamin D3] 1,000 unit PO DAILY 10/17/17 [History] Past Medical History HEENT History: Reports: Impaired Vision Other HEENT History: Wear corrective lenses Cardiovascular History: Reports: Afib, Arrhythmia, CAD, High Cholesterol Other Cardiovascular History: stress test Respiratory History: Reports: None Gastrointestinal History: Reports: Colon Polyp, Diverticulosis, GERD, Irritable Bowel Syndrome, Other (See Below) Other Gastrointestinal History: GASTRIC EROSIONS. 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 Psychiatric History: Reports: Anxiety, Panic Attack Endocrine/Metabolic History: Reports: None Hematologic History: Reports: Anemia Immunologic History: Reports: None Oncologic (Cancer) History: Reports: None Dermatologic History: Reports: None - Infectious Disease History Infectious Disease History: Reports: Chicken Pox, Influenza, Measles, Mumps - Past Surgical History GI Surgical History: Reports: Appendectomy, Cholecystectomy, Colonoscopy, EGD Other GI Surgeries/Procedures: hemorrohid repair Social & Family History - Family History Family Medical History: Noncontributory HEENT: Reports: None Cardiac: Reports: CAD Respiratory: Reports: None GI: Reports: None Musculoskeletal: Reports: None Neurological: Reports: None Psychiatric: Reports: None Endocrine/Metabolic: Reports: None Hematologic: Reports: None Immunologic: Reports: None Dermatologic: Reports: None Oncologic: Reports: None - Tobacco Use Smoking Status *Q: Never Smoker Second Hand Smoke Exposure: No - Caffeine Use Caffeine Use: Reports: Coffee Other Caffeine Use: none since Tuesday - Alcohol Use Days Per Week of Alcohol Use: 1 Number of Drinks Per Day: 2 Total Drinks Per Week: 2 - Recreational Drug Use Recreational Drug Use: No - Living Situation & Occupation Living situation: Reports: , with Spouse Occupation: Retired ED ROS GENERAL - Review of Systems Review Of Systems: ROS reveals no pertinent complaints other than HPI. ED EXAM, GENERAL - Physical Exam Exam: See Below Exam Limited By: No Limitations General Appearance: Alert, WD/WN, No Apparent Distress Ears: Hearing Grossly Normal Throat/Mouth: Normal Voice, No Airway Compromise Head: Atraumatic Neck: Non-Tender, Full Range of Motion Respiratory/Chest: No Respiratory Distress Cardiovascular: Other (occassional irreg) GI/Abdominal: Soft, Non-Tender Neurological: Alert, Oriented, Normal Cognition, Normal Gait, No Motor/Sensory Deficits Psychiatric: Flat Affect Skin Exam: Warm, Dry, Normal Color Lymphatic: No Adenopathy Course - Vital Signs Last Recorded V/S: Last Vital Signs Temp 36.6 C 10/23/17 21:59 Pulse 81 10/23/17 21:59 Resp 18 10/23/17 21:59 BP 133/87 10/23/17 21:59 Pulse Ox 100 10/23/17 21:59 - Orders/Labs/Meds Orders: Active Orders 24 hr Category Date Time Status EKG 12 Lead [EKG Documentation Completion] [RC] STAT Care 10/23/17 22:20 Active Labs: Laboratory Tests 10/23/17 10/23/17 Range/Units 22:20 22:20 WBC 5.1 (5.0-10.0) 10^3/uL RBC 3.83 L (4.6-6.2) 10^6/uL Hgb 12.4 L (14.0-18.0) g/dL Hct 36.2 L (40.0-54.0) % MCV 94.5 (80-100) fL MCH 32.4 (27.0-34.0) pg MCHC 34.3 (33.0-35.0) g/dL Plt Count 143 L (150-450) 10^3/uL Neut % (Auto) 48.8 (42.2-75.2) % Lymph % (Auto) 35.8 (20.5-50.1) % [place] % (Auto) 11.9 H (2-8) % Eos % (Auto) 3.1 H (1.0-3.0) % Baso % (Auto) 0.4 (0.0-1.0) % Sodium 141 (135-145) mmol/L Potassium 3.5 L (3.6-5.0) mmol/L Chloride 110 (101-111) mmol/L Carbon Dioxide 26.0 (21.0-31.0) mmol/L Anion Gap 8.5 BUN 22 H (7-18) mg/dL Creatinine 1.1 (0.6-1.3) mg/dL Est Cr Clr Drug Dosing 61.80 mL/min Estimated GFR (MDRD) > 60 BUN/Creatinine Ratio 20.00 Glucose 109 H (74-105) mg/dL Calcium 9.2 (8.4-10.2) mg/dl Total Bilirubin 0.8 (0.2-1.0) mg/dL AST 24 (10-42) IU/L ALT 23 (10-60) IU/L Alkaline Phosphatase 57 (42-121) IU/L Troponin I < 0.02 (0.00-0.02) ng/ml Total Protein 6.7 (6.7-8.2) g/dl Albumin 4.0 (3.2-5.5) g/dl Globulin 2.7 Albumin/Globulin Ratio 1.48 - Re-Assessments/Exams Free Text/Narrative Re-Assessment/Exam: 10/23/17 23:24 results discussed with pt & spouse. pt feels fine unless his heart skips which it has been doing on-off for past 10 days now. right now he is fine. Departure - Departure Time of Disposition: 23:40 Disposition: Home, Self-Care 01 Condition: Good Clinical Impression: Heart palpitations Instructions: Palpitations, [id number] Referrals: Miracle Whitney PA [Primary Care Provider] - Forms: ED Department Discharge Additional Instructions: 1) see clinic tomorrow for CARDIOLOGY REFERRAL 2) return if there is any change or concern - My Orders Last 24 Hours: My Active Orders 10/23/17 22:20 EKG 12 Lead [EKG Documentation Completion] [RC] STAT - Assessment/Plan Last 24 Hours: My Active Orders 10/23/17 22:20 EKG 12 Lead [EKG Documentation Completion] [RC] STAT
[2017-10-23 22:42] LABS: CHLORIDE,CL 110 mmol/L (101-111); SODIUM,NA 141 mmol/L (135-145)
--- NOTE | 2017-10-25 14:10 | EKG ---
10/23/2017- AYE RAMIREZ - FINDINGS: EKG, per my reading, shows sinus rhythm with PVC. [facility] /[id number]
== END 2017-10-23 23:41 | disposition home or self-care (01) ==
LOC: DL.ED 21:56
DX: R00.2 Palpitations (principal); E78.00 Pure hypercholesterolemia, unspecified; Z79.82 Long term (current) use of aspirin; Z79.899 Other long term (current) drug therapy
CPT/HCPCS: 36415; 80053; 84484; 85025; 93005; 93010; 99285

== ENCOUNTER 2018-07-23 21:37 | Emergency (ER) | payer MEDICARE, OTHER ==
[2018-07-23 21:43] VITALS: BP 121/77
--- NOTE | 2018-07-23 22:02 | EDM.PDOC ---
ED HPI GENERAL MEDICAL PROBLEM - General Chief Complaint: General Stated Complaint: FEELING POORLY Time Seen by Provider: 07/23/18 21:50 Source of Information: Reports: Patient History Limitations: Reports: No Limitations - History of Present Illness INITIAL COMMENTS - FREE TEXT/NARRATIVE: This 78 yo male patient reports to the ED due to not feeling very well over the past 4-5 days. The patient reports not feeling well after any exertion. The patient reports he was shoveling snow for about 1 1/2 hours yesterday and when he got inside he just felt "crappy". The patient could not describe it any better than that. The patient reports he has had loose bowel movements for the past several days 2-3 loose bowel movements per day. The patient reports he "just came in to get checked." The patient denies any current chest pain, denies any current abdominal pain, denies any current shortness of breath, denies any cough and denies any fever/chills. Duration: Day(s): (3-4), Intermittent Quality: Reports: Other Severity: Moderate Improves with: Reports: Rest Worsens with: Reports: Other (exertion) Context: Reports: Other Associated Symptoms: Reports: No Other Symptoms - Related Data Allergies Allergy/AdvReac Type Severity Reaction Status Date / Time No Known Allergies Allergy Verified 07/23/18 21:46 Home Meds: Home Meds Aspirin [Adult Low Dose Aspirin EC] 162.5 mg PO BID 11/03/13 [History] atorvaSTATin [Lipitor] 10 mg PO BEDTIME 11/03/13 [History] Multivitamin [Multiple Vitamins] 1 each PO DAILY 11/20/14 [History] Omeprazole 20 mg PO BEDTIME 11/03/15 [History] Nitroglycerin [IJP: Nitroglycerin] 1 tab SL ASDIRECTED 12/24/16 [History] Metoprolol Succinate [Toprol XL] 25 mg PO DAILY 10/12/17 [History] Cholecalciferol (Vitamin D3) [Vitamin D3] 1,000 unit PO DAILY 10/17/17 [History] Past Medical History HEENT History: Reports: Impaired Vision Other HEENT History: Wear corrective lenses Cardiovascular History: Reports: Afib, Arrhythmia, CAD, High Cholesterol Other Cardiovascular History: stress test Respiratory History: Reports: None Gastrointestinal History: Reports: Colon Polyp, Diverticulosis, GERD, Irritable Bowel Syndrome, Other (See Below) Other Gastrointestinal History: GASTRIC EROSIONS. S/P COLONIC TUBULAR ADENOMA Genitourinary History: Reports: None Musculoskeletal History: Reports: Other (See Below) Other Musculoskeletal History: HX OF 'BOARD WORKER'S CRAMP' Neurological History: Reports: Neuropathy, Peripheral, Other (See Below) Other Neuro History: Has had several CT's in past for left sided numbness, no Dx. Psychiatric History: Reports: Anxiety, Panic Attack Endocrine/Metabolic History: Reports: None Hematologic History: Reports: Anemia Immunologic History: Reports: None Oncologic (Cancer) History: Reports: None Dermatologic History: Reports: None - Infectious Disease History Infectious Disease History: Reports: Chicken Pox, Influenza, Measles, Mumps - Past Surgical History GI Surgical History: Reports: Appendectomy, Cholecystectomy, Colonoscopy, EGD Other GI Surgeries/Procedures: hemorrohid repair Dermatological Surgical History: Reports: Other (See Below) Social & Family History - Family History Family Medical History: Noncontributory HEENT: Reports: None Cardiac: Reports: CAD Respiratory: Reports: None GI: Reports: None Musculoskeletal: Reports: None Neurological: Reports: None Psychiatric: Reports: None Endocrine/Metabolic: Reports: None Hematologic: Reports: None Immunologic: Reports: None Dermatologic: Reports: None Oncologic: Reports: None - Tobacco Use Smoking Status *Q: Never Smoker - Caffeine Use Caffeine Use: Reports: Coffee Other Caffeine Use: none since Tuesday - Recreational Drug Use Recreational Drug Use: No - Living Situation & Occupation Living situation: Reports: , with Spouse Occupation: Retired ED ROS GENERAL - Review of Systems Review Of Systems: ROS reveals no pertinent complaints other than HPI. ED EXAM, GENERAL - Physical Exam Exam: See Below Exam Limited By: No Limitations General Appearance: Alert, WD/WN, No Apparent Distress Eye Exam: Bilateral Eye: EOMI, Normal Inspection, PERRL Ears: Normal External Exam, Normal Canal, Hearing Grossly Normal, Normal TMs Nose: Normal Inspection, Normal Mucosa, No Blood Throat/Mouth: Normal Inspection, Normal Lips, Normal Teeth, Normal Gums, Normal Oropharynx, Normal Voice, No Airway Compromise Head: Atraumatic, Normocephalic Neck: Normal Inspection, Supple, Non-Tender, Full Range of Motion Respiratory/Chest: No Respiratory Distress, Lungs Clear, Normal Breath Sounds, No Accessory Muscle Use, Chest Non-Tender Cardiovascular: Normal Peripheral Pulses, Regular Rate, Rhythm, No Edema, No Gallop, No JVD, No Murmur, No Rub GI/Abdominal: Normal Bowel Sounds, Soft, Non-Tender, No Organomegaly, No Distention, No Abnormal Bruit, No Mass (Male) Exam: Deferred Rectal (Males) Exam: Deferred Back Exam: Normal Inspection, Full Range of Motion, NT Extremities: Normal Inspection, Normal Range of Motion, Non-Tender, Normal Capillary Refill, No Pedal Edema Neurological: Alert, Oriented, CN II-XII Intact, Normal Cognition, Normal Gait, Normal Reflexes, No Motor/Sensory Deficits Psychiatric: Normal Affect, Normal Mood Skin Exam: Warm, Dry, Intact, Normal Color, No Rash Lymphatic: No Adenopathy Course - Vital Signs Last Recorded V/S: Last Vital Signs Temp 36.9 C 07/23/18 21:40 Pulse 89 07/23/18 21:40 Resp 15 07/23/18 21:40 BP 121/77 07/23/18 21:40 Pulse Ox 98 07/23/18 21:40 - Orders/Labs/Meds Orders: Active Orders 24 hr Category Date Time Status EKG Documentation Completion [RC] URGENT Care 07/23/18 21:50 Ordered Chest 1V Frontal [CR] Urgent Exams 07/23/18 22:06 Ordered Labs: Laboratory Tests 07/23/18 07/23/18 Range/Units 21:52 21:52 WBC 4.8 L (5.0-10.0) 10^3/uL RBC 3.89 L (4.6-6.2) 10^6/uL Hgb 12.7 L (14.0-18.0) g/dL Hct 36.8 L (40.0-54.0) % MCV 94.6 (80-100) fL MCH 32.6 (27.0-34.0) pg MCHC 34.5 (33.0-35.0) g/dL Plt Count 156 (150-450) 10^3/uL Neut % (Auto) 55.3 (42.2-75.2) % Lymph % (Auto) 30.4 (20.5-50.1) % [place] % (Auto) 11.0 H (2-8) % Eos % (Auto) 2.9 (1.0-3.0) % Baso % (Auto) 0.4 (0.0-1.0) % Sodium 141 (135-145) mmol/L Potassium 3.4 L (3.6-5.0) mmol/L Chloride 107 (101-111) mmol/L Carbon Dioxide 22.0 (21.0-31.0) mmol/L Anion Gap 15.4 BUN 20 H (7-18) mg/dL Creatinine 1.1 (0.6-1.3) mg/dL Est Cr Clr Drug Dosing 60.85 mL/min Estimated GFR (MDRD) > 60 BUN/Creatinine Ratio 18.18 Glucose 115 H (74-105) mg/dL Calcium 9.2 (8.4-10.2) mg/dl Total Bilirubin 0.7 (0.2-1.0) mg/dL AST 26 (10-42) IU/L ALT 23 (10-60) IU/L Alkaline Phosphatase 54 (42-121) IU/L Troponin I < 0.02 (0.00-0.02) ng/ml Total Protein 7.1 (6.7-8.2) g/dl Albumin 4.0 (3.2-5.5) g/dl Globulin 3.1 Albumin/Globulin Ratio 1.29 Departure - Departure Time of Disposition: 22:28 Disposition: Home, Self-Care 01 Condition: Fair Clinical Impression: Gastroenteritis - Discharge Information *PRESCRIPTION DRUG MONITORING PROGRAM REVIEWED*: Not Applicable *COPY OF PRESCRIPTION DRUG MONITORING REPORT IN PATIENT RAINER: Not Applicable Instructions: Viral Gastroenteritis, Adult, [id number] Forms: ED Department Discharge Care Plan Goals: The patient was advised of the examination, lab, EKG and x-ray results during the visit. The patient was encouraged to rest and relax. If the patient has any additional symptoms or concerns, the patient should either visit his primary care facility or return to the emergency department. - My Orders Last 24 Hours: My Active Orders 07/23/18 21:50 EKG Documentation Completion [RC] URGENT 07/23/18 22:06 Chest 1V Frontal [CR] Urgent - Assessment/Plan Last 24 Hours: My Active Orders 07/23/18 21:50 EKG Documentation Completion [RC] URGENT 07/23/18 22:06 Chest 1V Frontal [CR] Urgent
[2018-07-23 22:16] LABS: ANION GAP 15.4; CHLORIDE,CL 107 mmol/L (101-111); SODIUM,NA 141 mmol/L (135-145)
== END 2018-07-23 22:36 | disposition home or self-care (01) ==
LOC: DL.ED 21:37
DX: K52.9 Noninfective gastroenteritis and colitis, unspecified (principal); Z79.899 Other long term (current) drug therapy
CPT/HCPCS: 36415; 71045; 80053; 84484; 85025; 93005; 99284

== ENCOUNTER 2019-02-23 09:14 | Emergency (ER) | payer MEDICARE, OTHER ==
--- NOTE | 2019-02-23 09:23 | EDM.PDOC ---
ED HPI GENERAL MEDICAL PROBLEM - General Chief Complaint: Neuro Symptoms/Deficits Stated Complaint: NUMBNESS LEFT SIDE PER PATIENT Time Seen by Provider: 02/23/19 09:22 Source of Information: Reports: Patient, Old Records, RN, RN Notes Reviewed History Limitations: Reports: No Limitations - History of Present Illness INITIAL COMMENTS - FREE TEXT/NARRATIVE: Pt presents to ER from home by POV with c/o "total left body tingling". Pt states that last evening around 2100HRS he had returned from a late dinner at the [employer] and was reading the newspaper when he felt a tingling in his left foot that spread up his leg to his left arm/hand and the left side of his face. He denies pain, motor weakness, increased warmth or coolness of the limbs, color change to the skin of the affected areas, headache, visual changes, difficulty with speech or swallowing, or slurred speech. Review of old records revealed the pt has had chronic and recurring left sided numbness for many years. He has had at least 12 previous ER visits to this facility for left sided numbness since 2012 (since this EMR system has been in place). He has had left sided numbness/tingling evaluated by his PCP, by specialist in [place], and [facility], but no cause was ever found. Onset Date: 02/22/19 Onset Time: 21:00 Duration: Chronic Location: Reports: Head, Face, Upper Extremity, Left, Lower Extremity, Left Quality: Reports: Other (Denies pain) Improves with: Reports: None Worsens with: Reports: None Associated Symptoms: Reports: No Other Symptoms - Related Data Allergies Allergy/AdvReac Type Severity Reaction Status Date / Time No Known Allergies Allergy Verified 07/23/18 21:46 Home Meds: Home Meds Aspirin [Adult Low Dose Aspirin EC] 162.5 mg PO BID 11/03/13 [History] atorvaSTATin [Lipitor] 10 mg PO BEDTIME 11/03/13 [History] Multivitamin [Multiple Vitamins] 1 each PO DAILY 11/20/14 [History] Omeprazole 20 mg PO BEDTIME 11/03/15 [History] Nitroglycerin [IJP: Nitroglycerin] 1 tab SL ASDIRECTED 12/24/16 [History] Metoprolol Succinate [Toprol XL] 25 mg PO DAILY 10/12/17 [History] Cholecalciferol (Vitamin D3) [Vitamin D3] 1,000 unit PO DAILY 10/17/17 [History] Past Medical History HEENT History: Reports: Impaired Vision Other HEENT History: Wear corrective lenses Cardiovascular History: Reports: Afib, Arrhythmia, CAD, High Cholesterol Other Cardiovascular History: stress test Respiratory History: Reports: None Gastrointestinal History: Reports: Colon Polyp, Diverticulosis, GERD, Irritable Bowel Syndrome, Other (See Below) Other Gastrointestinal History: GASTRIC EROSIONS. S/P COLONIC TUBULAR ADENOMA Genitourinary History: Reports: None Musculoskeletal History: Reports: Other (See Below) Other Musculoskeletal History: HX OF 'TRACK WALKER'S CRAMP' Neurological History: Reports: Neuropathy, Peripheral, Other (See Below) Other Neuro History: Has had several CT's in past for left sided numbness, no Dx. Psychiatric History: Reports: Anxiety, Panic Attack Endocrine/Metabolic History: Reports: None Hematologic History: Reports: Anemia Immunologic History: Reports: None Oncologic (Cancer) History: Reports: None Dermatologic History: Reports: None - Infectious Disease History Infectious Disease History: Reports: Chicken Pox, Influenza, Measles, Mumps - Past Surgical History GI Surgical History: Reports: Appendectomy, Cholecystectomy, Colonoscopy, EGD Other GI Surgeries/Procedures: hemorrohid repair Dermatological Surgical History: Reports: Other (See Below) Social & Family History - Family History Family Medical History: Noncontributory HEENT: Reports: None Cardiac: Reports: CAD Respiratory: Reports: None GI: Reports: None Musculoskeletal: Reports: None Neurological: Reports: None Psychiatric: Reports: None Endocrine/Metabolic: Reports: None Hematologic: Reports: None Immunologic: Reports: None Dermatologic: Reports: None Oncologic: Reports: None - Caffeine Use Caffeine Use: Reports: Coffee Other Caffeine Use: none since Tuesday - Living Situation & Occupation Living situation: Reports: , with Spouse Occupation: Retired ED ROS GENERAL - Review of Systems Review Of Systems: ROS reveals no pertinent complaints other than HPI. ED EXAM, NEURO - Physical Exam Exam: See Below Exam Limited By: No Limitations General Appearance: Alert, WD/WN, No Apparent Distress, Anxious Eye Exam: Bilateral Eye: EOMI, Normal Inspection, PERRL Ears: Normal External Exam, Hearing Grossly Normal Nose: Normal Inspection Throat/Mouth: Normal Inspection, Normal Lips, Normal Voice, No Airway Compromise Head Exam: Atraumatic, Normocephalic Neck: Normal Inspection, Supple, Non-Tender, Full Range of Motion. No: Carotid Bruit, Lymphadenopathy (L), Lymphadenopathy (R) Respiratory/Chest: No Respiratory Distress, Lungs Clear, Normal Breath Sounds, No Accessory Muscle Use, Chest Non-Tender Cardiovascular: Normal Peripheral Pulses, Regular Rate, Rhythm, No Edema, No Gallop, No JVD, No Murmur, No Rub GI/Abdominal: Normal Bowel Sounds, Soft, Non-Tender, No Distention (Male) Exam: Deferred Rectal (Males) Exam: Deferred Neurological: Alert, Normal Mood/Affect, Normal Dorsiflexion, CN II-XII Intact, Normal Plantar Flexion, Normal Gait, Normal Reflexes, No Motor/Sensory Deficits (Subjectively states that the sensation of touch feels different on the left side of his body compared to the right.), Oriented x 3 Back Exam: Normal Inspection, Full Range of Motion, NT Extremities: Normal Inspection, Normal Range of Motion, Non-Tender, No Pedal Edema, Normal Capillary Refill Psychiatric: Normal Affect, Anxious Skin Exam: Warm, Dry, Intact, Normal Color, No Rash EKG INTERPRETATION EKG Date: 02/23/19 Time: 09:53 Rhythm: Other (SR) Rate (Beats/Min): 56 [place]: LAD-Left [place] Deviation P-Wave: Present QRS: Other (early precordial transition R/S) ST-T: Normal QT: Normal Comparison: No Change Course - Vital Signs Last Recorded V/S: Last Vital Signs Temp 97.7 F 02/23/19 09:28 Pulse 84 02/23/19 09:28 Resp 16 02/23/19 09:28 BP 163/82 H 02/23/19 09:28 Pulse Ox 99 02/23/19 09:28 - Orders/Labs/Meds Orders: Active Orders 24 hr Category Date Time Status EKG 12 Lead [EKG Documentation Completion] [RC] STAT Care 02/23/19 09:33 Active NIH Stroke Scale [RC] ASDIRECTED Care 02/23/19 09:33 Active Labs: Laboratory Tests 02/23/19 02/23/19 Range/Units 09:40 09:40 WBC 4.8 L (5.0-10.0) 10^3/uL RBC 4.30 L (4.6-6.2) 10^6/uL Hgb 13.7 L (14.0-18.0) g/dL Hct 41.1 (40.0-54.0) % MCV 95.6 (80-100) fL MCH 31.9 (27.0-34.0) pg MCHC 33.3 (33.0-35.0) g/dL Plt Count 166 (150-450) 10^3/uL Neut % (Auto) 60.6 (42.2-75.2) % Lymph % (Auto) 25.3 (20.5-50.1) % [place] % (Auto) 10.2 H (2-8) % Eos % (Auto) 3.5 H (1.0-3.0) % Baso % (Auto) 0.4 (0.0-1.0) % Sodium 140 (135-145) mmol/L Potassium 4.2 (3.6-5.0) mmol/L Chloride 107 (101-111) mmol/L Carbon Dioxide 26.0 (21.0-31.0) mmol/L Anion Gap 11.2 BUN 17 (7-18) mg/dL Creatinine 1.1 (0.6-1.3) mg/dL Est Cr Clr Drug Dosing 60.85 mL/min Estimated GFR (MDRD) > 60 BUN/Creatinine Ratio 15.45 Glucose 101 (74-105) mg/dL Calcium 9.4 (8.4-10.2) mg/dl Magnesium 2.0 (1.8-2.5) mg/dL Total Bilirubin 1.1 H (0.2-1.0) mg/dL AST 21 (10-42) IU/L ALT 20 (10-60) IU/L Alkaline Phosphatase 61 (42-121) IU/L Total Protein 7.5 (6.7-8.2) g/dl Albumin 4.3 (3.2-5.5) g/dl Globulin 3.2 Albumin/Globulin Ratio 1.34 - Re-Assessments/Exams Free Text/Narrative Re-Assessment/Exam: 02/23/19 09:36 NIH Stroke Scale: 0 Departure - Departure Time of Disposition: 10:12 Disposition: Home, Self-Care 01 Condition: Good Clinical Impression: Paresthesia - Discharge Information *PRESCRIPTION DRUG MONITORING PROGRAM REVIEWED*: No *COPY OF PRESCRIPTION DRUG MONITORING REPORT IN PATIENT RAINER: No Instructions: Paresthesia Forms: ED Department Discharge Additional Instructions: Follow up in clinic with your primary doctor for recheck if symptoms persist. - My Orders Last 24 Hours: My Active Orders 02/23/19 09:33 EKG 12 Lead [EKG Documentation Completion] [RC] STAT NIH Stroke Scale [RC] ASDIRECTED - Assessment/Plan Last 24 Hours: My Active Orders 02/23/19 09:33 EKG 12 Lead [EKG Documentation Completion] [RC] STAT NIH Stroke Scale [RC] ASDIRECTED
[2019-02-23 10:06] LABS: ANION GAP 11.2; CHLORIDE,CL 107 mmol/L (101-111); SODIUM,NA 140 mmol/L (135-145)
[2019-02-23 10:29] VITALS: BP 145/68
== END 2019-02-23 10:25 | disposition home or self-care (01) ==
LOC: DL.ED 09:14
DX: R20.2 Paresthesia of skin (principal); E78.00 Pure hypercholesterolemia, unspecified; K21.9 Gastro-esophageal reflux disease without esophagitis; F41.0 Panic disorder [episodic paroxysmal anxiety]; Z79.82 Long term (current) use of aspirin; Z79.899 Other long term (current) drug therapy
CPT/HCPCS: 36415; 80053; 83735; 85025; 93005; 99284-25

== ENCOUNTER 2019-04-26 00:52 | Emergency (ER) | payer MEDICARE, OTHER ==
[2019-04-26 00:59] VITALS: BP 145/80; PULSE 79
--- NOTE | 2019-04-26 01:00 | EDM.PDOC ---
ED HPI GENERAL MEDICAL PROBLEM - General Stated Complaint: DOESNT FEEL GOOD Time Seen by Provider: 04/26/19 00:55 Source of Information: Reports: Patient History Limitations: Reports: No Limitations - History of Present Illness INITIAL COMMENTS - FREE TEXT/NARRATIVE: ED ambulatory with c/o discomfort to left shoulder since afternoon after cleaning snow. States didn't feel well 2 days ago, fine yesterday. Denies chest pain or SOB, Pain left shoulder with radiation down upper arm, pain not affected by activity rates 2-3/10. No nausea No fever. Occasional cough. Aspirin 162 tonight . Last stress test 2 years ago. Stated he knew he wouldn't be able to sleep until he got checked out. Patient has been seen multiple times for vague complaints, Has hx DDD with cervical radiculopathy Left Shoulder Pain Score (Numeric/FACES): 2 - Related Data Allergies Allergy/AdvReac Type Severity Reaction Status Date / Time No Known Allergies Allergy Verified 04/26/19 00:58 Home Meds: Home Meds Aspirin [Adult Low Dose Aspirin EC] 162.5 mg PO BID 11/03/13 [History] atorvaSTATin [Lipitor] 10 mg PO BEDTIME 11/03/13 [History] Omeprazole 40 mg PO BEDTIME 11/03/15 [History] Nitroglycerin [IJP: Nitroglycerin] 1 tab SL ASDIRECTED 12/24/16 [History] Metoprolol Succinate [Toprol XL] 25 mg PO DAILY 10/12/17 [History] Esomeprazole Magnesium [Nexium] 40 mg PO DAILY 04/26/19 [History] Potassium Chloride 10 meq PO DAILY 04/26/19 [History] Past Medical History HEENT History: Reports: Impaired Vision Other HEENT History: Wear corrective lenses Cardiovascular History: Reports: Afib, Arrhythmia, CAD, High Cholesterol Other Cardiovascular History: stress test Respiratory History: Reports: None Gastrointestinal History: Reports: Colon Polyp, Diverticulosis, GERD, Irritable Bowel Syndrome, Other (See Below) Other Gastrointestinal History: GASTRIC EROSIONS. 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 Psychiatric History: Reports: Anxiety, Panic Attack Endocrine/Metabolic History: Reports: None Hematologic History: Reports: Anemia Immunologic History: Reports: None Oncologic (Cancer) History: Reports: None Dermatologic History: Reports: None - Infectious Disease History Infectious Disease History: Reports: Chicken Pox, Influenza, Measles, Mumps - Past Surgical History GI Surgical History: Reports: Appendectomy, Cholecystectomy, Colonoscopy, EGD Other GI Surgeries/Procedures: hemorrohid repair Dermatological Surgical History: Reports: Other (See Below) Social & Family History - Family History Family Medical History: Noncontributory HEENT: Reports: None Cardiac: Reports: CAD Respiratory: Reports: None GI: Reports: None Musculoskeletal: Reports: None Neurological: Reports: None Psychiatric: Reports: None Endocrine/Metabolic: Reports: None Hematologic: Reports: None Immunologic: Reports: None Dermatologic: Reports: None Oncologic: Reports: None - Caffeine Use Caffeine Use: Reports: Coffee Other Caffeine Use: none since Tuesday - Living Situation & Occupation Living situation: Reports: , with Spouse Occupation: Retired ED ROS GENERAL - Review of Systems Review Of Systems: ROS reveals no pertinent complaints other than HPI. ED EXAM, GENERAL - Physical Exam Exam: See Below Exam Limited By: No Limitations General Appearance: Alert, Anxious Eye Exam: Bilateral Eye: EOMI Ears: Normal External Exam, Hearing Grossly Normal Nose: Normal Inspection Throat/Mouth: Normal Inspection Head: Atraumatic, Normocephalic Neck: Normal Inspection, Full Range of Motion Respiratory/Chest: No Respiratory Distress (Talking full sentences), Lungs Clear , Normal Breath Sounds Cardiovascular: Normal Peripheral Pulses, Regular Rate, Rhythm, No Murmur GI/Abdominal: Normal Bowel Sounds, Soft, Non-Tender Extremities: Normal Inspection, Normal Range of Motion Neurological: Alert, Oriented, Normal Cognition Psychiatric: Anxious Skin Exam: Warm, Dry, Intact, Normal Color EKG INTERPRETATION Rhythm: NSR Rate (Beats/Min): 68 Course - Vital Signs Last Recorded V/S: Last Vital Signs Temp 97.1 F 04/26/19 00:55 Pulse 79 04/26/19 00:55 Resp 16 04/26/19 00:55 BP 145/80 H 04/26/19 00:55 Pulse Ox 100 04/26/19 00:55 - Orders/Labs/Meds Orders: Active Orders 24 hr Category Date Time Status EKG Documentation Completion [RC] URGENT Care 04/26/19 01:01 Active Labs: Laboratory Tests 04/26/19 04/26/19 04/26/19 Range/Units 01:07 01:07 01:07 WBC 5.2 (5.0-10.0) 10^3/uL RBC 4.04 L (4.6-6.2) 10^6/uL Hgb 13.1 L (14.0-18.0) g/dL Hct 38.2 L (40.0-54.0) % MCV 94.6 (80-100) fL MCH 32.4 (27.0-34.0) pg MCHC 34.3 (33.0-35.0) g/dL Plt Count 142 L (150-450) 10^3/uL Neut % (Auto) 43.6 (42.2-75.2) % Lymph % (Auto) 39.7 (20.5-50.1) % [place] % (Auto) 12.1 H (2-8) % Eos % (Auto) 4.4 H (1.0-3.0) % Baso % (Auto) 0.2 (0.0-1.0) % PT (9.0-12.0) SEC INR (0.9-1.2) Sodium 139 (135-145) mmol/L Potassium 3.8 (3.6-5.0) mmol/L Chloride 105 (101-111) mmol/L Carbon Dioxide 29.0 (21.0-31.0) mmol/L Anion Gap 8.8 BUN 18 (7-18) mg/dL Creatinine 1.1 (0.6-1.3) mg/dL Est Cr Clr Drug Dosing 61.73 mL/min Estimated GFR (MDRD) > 60 BUN/Creatinine Ratio 16.36 Glucose 105 (74-105) mg/dL Calcium 9.1 (8.4-10.2) mg/dl Magnesium 2.0 (1.8-2.5) mg/dL Total Bilirubin 0.7 (0.2-1.0) mg/dL AST 22 (10-42) IU/L ALT 20 (10-60) IU/L Alkaline Phosphatase 54 (42-121) IU/L CK-MB (CK-2) 0.70 (0.4-4.7) ng/mL Troponin I < 0.02 (0.00-0.02) ng/ml Total Protein 6.8 (6.7-8.2) g/dl Albumin 4.0 (3.2-5.5) g/dl Globulin 2.8 Albumin/Globulin Ratio 1.43 Amylase 66 (28-100) U/L Lipase 36 (22-51) U/L 04/26/19 Range/Units 01:07 WBC (5.0-10.0) 10^3/uL RBC (4.6-6.2) 10^6/uL Hgb (14.0-18.0) g/dL Hct (40.0-54.0) % MCV (80-100) fL MCH (27.0-34.0) pg MCHC (33.0-35.0) g/dL Plt Count (150-450) 10^3/uL Neut % (Auto) (42.2-75.2) % Lymph % (Auto) (20.5-50.1) % [place] % (Auto) (2-8) % Eos % (Auto) (1.0-3.0) % Baso % (Auto) (0.0-1.0) % PT 10.1 (9.0-12.0) SEC INR 1.0 (0.9-1.2) Sodium (135-145) mmol/L Potassium (3.6-5.0) mmol/L Chloride (101-111) mmol/L Carbon Dioxide (21.0-31.0) mmol/L Anion Gap BUN (7-18) mg/dL Creatinine (0.6-1.3) mg/dL Est Cr Clr Drug Dosing mL/min Estimated GFR (MDRD) BUN/Creatinine Ratio Glucose (74-105) mg/dL Calcium (8.4-10.2) mg/dl Magnesium (1.8-2.5) mg/dL Total Bilirubin (0.2-1.0) mg/dL AST (10-42) IU/L ALT (10-60) IU/L Alkaline Phosphatase (42-121) IU/L CK-MB (CK-2) (0.4-4.7) ng/mL Troponin I (0.00-0.02) ng/ml Total Protein (6.7-8.2) g/dl Albumin (3.2-5.5) g/dl Globulin Albumin/Globulin Ratio Amylase (28-100) U/L Lipase (22-51) U/L Meds: Medications Discontinued Medications Generic Name Dose Route Start Last Admin Trade Name Franky PRN Reason Stop Dose Admin Acetaminophen 650 mg 04/26/19 01:46 04/26/19 01:56 Tylenol PO 04/26/19 01:47 650 mg NOW ONE Administration Departure - Departure Time of Disposition: 01:47 Disposition: Home, Self-Care 01 Condition: Good Clinical Impression: Anxiety Pain in left shoulder Qualifiers: Chronicity: acute Qualified Code(s): M25.512 - Pain in left shoulder - Discharge Information *PRESCRIPTION DRUG MONITORING PROGRAM REVIEWED*: No *COPY OF PRESCRIPTION DRUG MONITORING REPORT IN PATIENT RAINER: No Instructions: Shoulder Pain Additional Instructions: light activity follow up clinic this week follow up with cardiology for stress test urgent follow up if chest pain, nausea and vomiting. continue home medications - My Orders Last 24 Hours: My Active Orders 04/26/19 01:01 EKG Documentation Completion [RC] URGENT - Assessment/Plan Last 24 Hours: My Active Orders 04/26/19 01:01 EKG Documentation Completion [RC] URGENT
[2019-04-26 01:36] LABS: ANION GAP 8.8; CHLORIDE,CL 105 mmol/L (101-111); SODIUM,NA 139 mmol/L (135-145)
[2019-04-26] MEDS ORDERED: Acetaminophen 325 MG Tab PO ONE (01:46)
== END 2019-04-26 02:03 | disposition home or self-care (01) ==
LOC: DL.ED 00:52
DX: F41.9 Anxiety disorder, unspecified (principal); M25.512 Pain in left shoulder; Z79.82 Long term (current) use of aspirin; I25.10 Atherosclerotic heart disease of native coronary artery without angina pectoris; K21.9 Gastro-esophageal reflux disease without esophagitis; E78.5 Hyperlipidemia, unspecified; Z79.899 Other long term (current) drug therapy
CPT/HCPCS: 36415; 80053; 82150; 82553; 83690; 83735; 84484; 85025; 85610; 93005; 99283; A9270

== ENCOUNTER 2019-12-24 20:13 | Emergency (ER) | payer MEDICARE, OTHER ==
[2019-12-24 20:23] VITALS: BP 135/73; PULSE 93
--- NOTE | 2019-12-24 22:09 | EDM.PDOC ---
ED HPI GENERAL MEDICAL PROBLEM - General Chief Complaint: Abdominal Pain Stated Complaint: ABD PAIN Time Seen by Provider: 12/24/19 22:05 Source of Information: Reports: Patient History Limitations: Reports: No Limitations - History of Present Illness INITIAL COMMENTS - FREE TEXT/NARRATIVE: Patient comes emergency department today with complaints of abdominal pain as well as epigastric and chest pain. This patient approximately 24 hours complained of what he felt was heartburn and burning in his epigastric region that radiated radiated up his sternum and into his throat. He took his Nexium without improvement and went to bed. This morning when he woke up his heartburn has resolved and his burning in his chest has been intermittent throughout the day. This evening he went to [employer] and purchase a Tuesday and developed mid abdominal pain. He has had diarrhea multiple times. He has had no nausea or vomiting. No fever no chills. He complains of cramping severe pain in his umbilicus region. He does have a history of a hernia inguinal on the right side which is quite a bit larger than normal he relates. It is not more painful but it is definitely larger and more swollen than it is typically. He has no hematuria dysuria or urinary frequency. He has had his appendix removed but his gallbladder is still in place. He had 3 bowel movements today that were firm and somewhat difficult but not uncommon for him. He has had no diarrhea. No body aches. Denies any COVID symptoms. Denies any black or tarry stools. Lower Abdomen Pain Score (Numeric/FACES): 6 - Related Data Allergies Allergy/AdvReac Type Severity Reaction Status Date / Time No Known Allergies Allergy Verified 12/24/19 20:18 Home Meds: Home Meds Aspirin [Adult Low Dose Aspirin EC] 162.5 mg PO BID 11/03/13 [History] atorvaSTATin [Lipitor] 10 mg PO BEDTIME 11/03/13 [History] Nitroglycerin [IJP: Nitroglycerin] 1 tab SL ASDIRECTED 12/24/16 [History] Metoprolol Succinate [Toprol XL] 25 mg PO DAILY 10/12/17 [History] Esomeprazole Magnesium [Nexium] 40 mg PO DAILY 04/26/19 [History] Potassium Chloride 10 meq PO DAILY 04/26/19 [History] Past Medical History HEENT History: Reports: Impaired Vision Other HEENT History: Wear corrective lenses Cardiovascular History: Reports: Afib, Arrhythmia, CAD, High Cholesterol Other Cardiovascular History: stress test Respiratory History: Reports: None Gastrointestinal History: Reports: Colon Polyp, Diverticulosis, GERD, Irritable Bowel Syndrome, Other (See Below) Other Gastrointestinal History: GASTRIC EROSIONS. 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 Psychiatric History: Reports: Anxiety, Panic Attack Endocrine/Metabolic History: Reports: None Hematologic History: Reports: Anemia Immunologic History: Reports: None Oncologic (Cancer) History: Reports: None Dermatologic History: Reports: None - Infectious Disease History Infectious Disease History: Reports: Chicken Pox, Influenza, Measles, Mumps - Past Surgical History GI Surgical History: Reports: Appendectomy, Cholecystectomy, Colonoscopy, EGD Other GI Surgeries/Procedures: hemorrohid repair Dermatological Surgical History: Reports: Other (See Below) Social & Family History - Family History Family Medical History: Noncontributory HEENT: Reports: None Cardiac: Reports: CAD Respiratory: Reports: None GI: Reports: None Musculoskeletal: Reports: None Neurological: Reports: None Psychiatric: Reports: None Endocrine/Metabolic: Reports: None Hematologic: Reports: None Immunologic: Reports: None Dermatologic: Reports: None Oncologic: Reports: None - Tobacco Use Smoking Status *Q: Never Smoker - Caffeine Use Caffeine Use: Reports: Coffee Other Caffeine Use: none since Tuesday Caffeine Use Comment: pt reports 7-8 cups coffee daily - Recreational Drug Use Recreational Drug Use: No - Living Situation & Occupation Living situation: Reports: , with Spouse Occupation: Retired ED ROS GENERAL - Review of Systems Review Of Systems: Comprehensive ROS is negative, except as noted in HPI. ED EXAM, GI/ABD - Physical Exam Exam: See Below Exam Limited By: No Limitations General Appearance: Alert, WD/WN, No Apparent Distress Eyes: Bilateral: EOMI Ears: Normal External Exam Nose: Normal Inspection Throat/Mouth: Normal Inspection, Normal Lips Head: Atraumatic, Normocephalic Neck: Normal Inspection, Supple Respiratory/Chest: No Respiratory Distress, Lungs Clear, Normal Breath Sounds, No Accessory Muscle Use, Chest Non-Tender Cardiovascular: Normal Peripheral Pulses, Regular Rate, Rhythm GI/Abdominal Exam: Normal Bowel Sounds (Hypoactive), Soft, Tender (Tenderness right around the umbilicus region. With guarding no rebound tenderness.), Hernia (Large right inguinal hernia. None reducible. Does extend down into his scrotum which is minimally tender.) (Male) Exam: Deferred Rectal (Males) Exam: Deferred Back Exam: Normal Inspection Extremities: Normal Inspection, Normal Range of Motion Neurological: Alert, Oriented, Normal Cognition, No Motor/Sensory Deficits Psychiatric: Normal Affect, Normal Mood Skin Exam: Warm, Dry, Intact, Normal Color, No Rash EKG INTERPRETATION EKG Date: 12/24/19 Time: 22:19 Rhythm: Other (1st degree AV block) Rate (Beats/Min): 76 [place]: Normal P-Wave: Present QRS: Normal ST-T: Normal QT: Normal Comparison: No Change Course - Vital Signs Last Recorded V/S: Last Vital Signs Temp 98.5 F 12/24/19 20:22 Pulse 93 12/24/19 20:22 Resp 16 12/24/19 20:22 BP 135/73 12/24/19 20:22 Pulse Ox 100 12/24/19 20:22 - Orders/Labs/Meds Orders: Active Orders 24 hr Category Date Time Status EKG Documentation Completion [RC] STAT Care 12/24/19 22:09 Active Labs: Laboratory Tests 12/24/19 12/24/19 12/24/19 Range/Units 22:16 22:16 22:16 WBC 5.8 (5.0-10.0) 10^3/uL RBC 4.21 L (4.6-6.2) 10^6/uL Hgb 13.9 L (14.0-18.0) g/dL Hct 41.1 (40.0-54.0) % MCV 97.6 D (80-100) fL MCH 33.0 (27.0-34.0) pg MCHC 33.8 (33.0-35.0) g/dL Plt Count 162 (150-450) 10^3/uL Neut % (Auto) 65.4 (42.2-75.2) % Lymph % (Auto) 20.8 (20.5-50.1) % [place] % (Auto) 11.7 H (2-8) % Eos % (Auto) 1.9 (1.0-3.0) % Baso % (Auto) 0.2 (0.0-1.0) % Sodium 145 (136-145) mmol/L Potassium 3.8 (3.5-5.1) mmol/L Chloride 107 (98-107) mmol/L Carbon Dioxide 29 (21-32) mmol/L Anion Gap 12.8 (7-13) mEq/L BUN 19 H (7-18) mg/dL Creatinine 1.15 (0.70-1.30) mg/dL Est Cr Clr Drug Dosing 57.29 mL/min Estimated GFR (MDRD) > 60 BUN/Creatinine Ratio 16.5 (No establ ref range) Glucose 107 H (74-99) mg/dL Lactic Acid 0.7 (0.4-2.0) mmol/L Calcium 9.3 (8.5-10.1) mg/dL Total Bilirubin 0.6 (0.2-1.0) mg/dL AST 20 (15-37) U/L ALT 30 (16-63) U/L Alkaline Phosphatase 72 (46-116) U/L Troponin I < 0.017 (0.000-0.056) ng/mL Total Protein 7.4 (6.4-8.2) g/dL Albumin 4.0 (3.4-5.0) g/dL Globulin 3.4 Albumin/Globulin Ratio 1.2 Lipase 97 (73-393) U/L Meds: Medications Discontinued Medications Generic Name Dose Route Start Last Admin Trade Name Freq PRN Reason Stop Dose Admin Al Hydroxide/Mg Hydroxide 30 ml 12/24/19 22:10 12/24/19 22:24 Gi Cocktail PO 12/24/19 22:11 30 ml ONETIME ONE Administration Iopamidol 100 ml 12/24/19 22:56 12/24/19 23:10 Isovue-300 (61%) IVPUSH 12/24/19 22:57 75 ml ONETIME ONE Administration - Radiology Interpretation Free Text/Narrative:: CT scan of the abdomen per radiology shows no acute findings are evident. Fat- containing right inguinal hernia. - Re-Assessments/Exams Free Text/Narrative Re-Assessment/Exam: 12/25/19 00:35 His EKG was negative. Laboratory evaluation is unremarkable. GI cocktail with resolution of his symptoms. Reexamination of the abdomen shows a soft nontender nondistended non-guarding abdomen. CT is negative other than his chronic inguinal hernia. Really sure what is causing his pain but I am not finding any acute pathology. Could be just some worsening of his heartburn or some lactose intolerance or irritation from the ice cream he ate today. Will have him try some Maalox Mylanta if he is not improving recheck with primary care. He is comfortable this plan his questions are answered. Departure - Departure Time of Disposition: 23:59 Disposition: Home, Self-Care 01 Clinical Impression: Abdominal pain Qualifiers: Abdominal location: unspecified location Qualified Code(s): R10.9 - Unspecified abdominal pain Inguinal hernia Qualifiers: Obstruction and gangrene presence: without obstruction or gangrene Laterality: unilateral Recurrence: not specified as recurrent Qualified Code(s): K40.90 - Unilateral inguinal hernia, without obstruction or gangrene, not specified as recurrent - Discharge Information Instructions: Hernia, Adult, [id number], Abdominal Pain, Adult, [id number], Pain Medicine Instructions, [id number] Forms: ED Department Discharge Additional Instructions: Stay away from dairy until symptom free for 48 hrs. See your surgeon about your hernia if it continues to be problematic. Return to the ED if new or worsening symptoms. Follow up with PCP in the next 3-5 days if not improving sooner if worse. Sepsis Event Note (ED) - Evaluation Sepsis Screening Result: No Definite Risk - Focused Exam Vital Signs: Vital Signs Temp Pulse Resp BP Pulse Ox 12/24/19 20:22 98.5 F 93 16 135/73 100 - My Orders Last 24 Hours: My Active Orders 12/24/19 22:09 EKG Documentation Completion [RC] STAT - Assessment/Plan Last 24 Hours: My Active Orders 12/24/19 22:09 EKG Documentation Completion [RC] STAT Assessment:: Abd pain ? unkown cause GERD maybe? Chronic right inguinal hernia. Plan: Stay away from dairy until symptom free for 48 hrs. See your surgeon about your hernia if it continues to be problematic. Return to the ED if new or worsening symptoms. Follow up with PCP in the next 3-5 days if not improving sooner if worse.
[2019-12-24] MEDS ORDERED: GI Cocktail Oral Solution 30 ML PO ONE (22:10)
[2019-12-24 22:51] LABS: ANION GAP 12.8 mEq/L (7-13); CHLORIDE,CL 107 mmol/L (98-107); SODIUM,NA 145 mmol/L (136-145)
[2019-12-24] MEDS ORDERED: Iopamidol 612 MG/ML 100 ML Bottle IVPUSH ONE (22:56)
--- NOTE | 2019-12-24 23:43 | CT ---
PROCEDURE INFORMATION: Exam: CT Abdomen And Pelvis With Contrast Exam date and time: 12/24/2019 11:04 PM Age: 79 years old Clinical indication: Abdominal pain; Generalized; Prior surgery; Surgery date: 6+ months; Surgery type: Appendix removed; Additional info: Abd pain HX of R inguinal hernia. TECHNIQUE: Imaging protocol: Computed tomography of the abdomen and pelvis with intravenous contrast. Radiation optimization: All CT scans at this facility use at least one of these dose optimization techniques: automated exposure control; mA and/or kV adjustment per patient size (includes targeted exams where dose is matched to clinical indication); or iterative reconstruction. Contrast material: ISOVUE 300; Contrast volume: 75 ml; Contrast route: INTRAVENOUS (IV); COMPARISON: CT Abdomen Pelvis wo Cont 09/10/2016 9:30 AM FINDINGS: Lungs: The lung bases are clear. Pleural space: No significant pleural effusion. Liver: The liver is normal. Gallbladder and bile ducts: Cholecystectomy. No biliary ductal dilation. Pancreas: The pancreas is normal without ductal dilation. Spleen: The spleen is normal. Adrenals: The adrenals are normal. Kidneys and ureters: No renal stone or hydronephrosis. No ureteral dilation or stone. Stomach and bowel: Colonic diverticula without convincing surrounding inflammatory changes. No small bowel dilation. Appendix: Status post appendectomy. Intraperitoneal space: No free intraabdominal air. No free fluid. Vasculature: . No abdominal aortic aneurysm. Lymph nodes: . No enlarged lymph nodes. Bladder: The bladder is normal. Reproductive: Moderate prostate enlargment. Bones/joints: Mild degenerative bone changes. Soft tissues: Right fat containing inguinal hernia. IMPRESSION: 1. No acute findings are evident. 2. Fat containing right inguinal hernia
== END 2019-12-25 00:03 | disposition home or self-care (01) ==
LOC: DL.ED 20:13
DX: K40.90 Unilateral inguinal hernia, without obstruction or gangrene, not specified as recurrent (principal); I48.91 Unspecified atrial fibrillation; I25.10 Atherosclerotic heart disease of native coronary artery without angina pectoris; E78.00 Pure hypercholesterolemia, unspecified; K21.9 Gastro-esophageal reflux disease without esophagitis; Z90.49 Acquired absence of other specified parts of digestive tract; Z79.82 Long term (current) use of aspirin; Z79.899 Other long term (current) drug therapy
CPT/HCPCS: 36415; 74177; 80053; 83605; 83690; 84484; 85025; 93005; 99284; A9270; Q9967; 93010

== ENCOUNTER 2020-12-04 04:55 | Emergency (ER) | payer MEDICARE, OTHER ==
[2020-12-04 05:32] LABS: ANION GAP 11.2 mEq/L (7-13); CHLORIDE,CL 108 mmol/L (98-107); SODIUM,NA 143 mmol/L (136-145)
[2020-12-04 05:55] VITALS: BP 126/67; PULSE 64
--- NOTE | 2020-12-04 06:17 | EDM.PDOC ---
ED HPI GENERAL MEDICAL PROBLEM - General Chief Complaint: Chest Pain Stated Complaint: DISCOMFORT IN CHEST Time Seen by Provider: 12/04/20 05:20 Source of Information: Reports: Patient History Limitations: Reports: No Limitations - History of Present Illness INITIAL COMMENTS - FREE TEXT/NARRATIVE: ED with c/o briedf episode of left sided chest pain, Stated woke sleeping on back and rolled to side, felt sharp left chest pain, similar episode 2 nights prior, took tums then and relieved pain. Pain free on presentation, States just wants to be checked out. Remote cardiac hx. Sees test inspection engineer 2x per eyear. Negative stress test in August. Non smoker, 6 cups coffee per day. Admits ate prior to bed last night and had green peppers for supper. No sweating, No radiation of pain. Received [employer] vacine. 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 - Related Data Allergies Allergy/AdvReac Type Severity Reaction Status Date / Time No Known Allergies Allergy Verified 12/24/19 20:18 Home Meds: Home Meds Aspirin [Adult Low Dose Aspirin EC] 162.5 mg PO BID 11/03/13 [History] atorvaSTATin [Lipitor] 10 mg PO BEDTIME 11/03/13 [History] Nitroglycerin [IJP: Nitroglycerin] 1 tab SL ASDIRECTED 12/24/16 [History] Metoprolol Succinate [Toprol XL] 25 mg PO DAILY 10/12/17 [History] Esomeprazole Magnesium [Nexium] 40 mg PO DAILY 04/26/19 [History] Potassium Chloride 10 meq PO DAILY 04/26/19 [History] Past Medical History HEENT History: Reports: Impaired Vision Other HEENT History: Wear corrective lenses Cardiovascular History: Reports: Afib, Arrhythmia, CAD, High Cholesterol Other Cardiovascular History: follows test inspection engineer for routine stress tests - last August 2020. Respiratory History: Reports: None Gastrointestinal History: Reports: Colon Polyp, Diverticulosis, GERD, Irritable Bowel Syndrome, Other (See Below) Other Gastrointestinal History: GASTRIC EROSIONS. 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 Psychiatric History: Reports: Anxiety, Panic Attack Endocrine/Metabolic History: Reports: None Hematologic History: Reports: Anemia Immunologic History: Reports: None Oncologic (Cancer) History: Reports: None Dermatologic History: Reports: None - Infectious Disease History Infectious Disease History: Reports: Chicken Pox, Influenza, Measles, Mumps - Past Surgical History Cardiovascular Surgical History: Reports: None GI Surgical History: Reports: Appendectomy, Cholecystectomy, Colonoscopy, EGD Other GI Surgeries/Procedures: hemorrohid repair Dermatological Surgical History: Reports: Other (See Below) Social & Family History - Family History Family Medical History: No Pertinent Family History HEENT: Reports: None Cardiac: Reports: CAD Respiratory: Reports: None GI: Reports: None Musculoskeletal: Reports: None Neurological: Reports: None Psychiatric: Reports: None Endocrine/Metabolic: Reports: None Hematologic: Reports: None Immunologic: Reports: None Dermatologic: Reports: None Oncologic: Reports: None - Tobacco Use Tobacco Use Status *Q: Never Tobacco User - Caffeine Use Caffeine Use: Reports: Coffee, Soda Other Caffeine Use: none since Tuesday Caffeine Use Comment: pt reports 7-8 cups coffee daily - Alcohol Use Days Per Week of Alcohol Use: 7 Number of Drinks Per Day: 1 Total Drinks Per Week: 7 Date of Last Drink: 12/03/20 - Recreational Drug Use Recreational Drug Use: No - Living Situation & Occupation Living situation: Reports: , with Spouse Occupation: Retired ED ROS GENERAL - Review of Systems Review Of Systems: Comprehensive ROS is negative, except as noted in HPI. ED EXAM, GENERAL - Physical Exam Exam: See Below Exam Limited By: No Limitations General Appearance: Alert, Anxious Eye Exam: Bilateral Eye: EOMI Ears: Normal External Exam Nose: Normal Inspection Throat/Mouth: Normal Inspection Head: Atraumatic, Normocephalic Neck: Normal Inspection Respiratory/Chest: No Respiratory Distress, Lungs Clear, Normal Breath Sounds Cardiovascular: Normal Peripheral Pulses, Regular Rate, Rhythm GI/Abdominal: Normal Bowel Sounds, Soft, Non-Tender Back Exam: Normal Inspection Extremities: Normal Inspection, No Pedal Edema Neurological: Alert, Oriented Psychiatric: Anxious Skin Exam: Warm, Dry, Intact, Normal Color #1 Interpretation EKG Date: 12/04/20 Time: 05:17 Rhythm: NSR Rate (Beats/Min): 59 [place]: LAD-Left [place] Deviation (borderline) P-Wave: Present QRS: Normal ST-T: Normal QT: Prolonged Comparison: No Change Course - Vital Signs Last Recorded V/S: Last Vital Signs Temp 98.3 F 12/04/20 05:02 Pulse 64 12/04/20 05:02 Resp 18 12/04/20 05:02 BP 126/67 12/04/20 05:02 Pulse Ox 99 12/04/20 05:02 - Orders/Labs/Meds Labs: Laboratory Tests 12/04/20 12/04/20 12/04/20 Range/Units 05:05 05:05 05:05 WBC 5.2 (5.0-10.0) 10^3/uL RBC 3.99 L (4.6-6.2) 10^6/uL Hgb 13.1 L (14.0-18.0) g/dL Hct 38.6 L (40.0-54.0) % MCV 96.7 (80-100) fL MCH 32.8 (27.0-34.0) pg MCHC 33.9 (33.0-35.0) g/dL Plt Count 140 L (150-450) 10^3/uL Neut % (Auto) 41.4 L (42.2-75.2) % Lymph % (Auto) 43.2 (20.5-50.1) % [place] % (Auto) 12.1 H (2-8) % Eos % (Auto) 3.1 H (1.0-3.0) % Baso % (Auto) 0.2 (0.0-1.0) % PT 10.6 (9.0-12.0) SEC INR 1.1 (0.9-1.2) D-Dimer, Quantitative < 100 (0-400) ng/mL Sodium 143 (136-145) mmol/L Potassium 4.2 (3.5-5.1) mmol/L Chloride 108 H (98-107) mmol/L Carbon Dioxide 28 (21-32) mmol/L Anion Gap 11.2 (7-13) mEq/L BUN 16 (7-18) mg/dL Creatinine 1.26 (0.70-1.30) mg/dL Est Cr Clr Drug Dosing TNP Estimated GFR (MDRD) 55 BUN/Creatinine Ratio 12.7 (No establ ref range) Glucose 103 H (70-99) mg/dL Calcium 8.7 (8.5-10.1) mg/dL Magnesium 2.1 (1.8-2.4) mg/dL Total Bilirubin 0.7 (0.2-1.0) mg/dL AST 17 (15-37) U/L ALT 27 (16-63) U/L Alkaline Phosphatase 65 (46-116) U/L Troponin I High Sens 8 (<=76) pg/mL B-Natriuretic Peptide 41 (0-100) pg/ml Total Protein 6.6 (6.4-8.2) g/dL Albumin 3.5 (3.4-5.0) g/dL Globulin 3.1 Albumin/Globulin Ratio 1.1 Amylase 54 (25-115) U/L Departure - Departure Time of Disposition: 06:20 Disposition: Home, Self-Care 01 Condition: Good Clinical Impression: Non-cardiac chest pain Instructions: Nonspecific Chest Pain, Adult Forms: ED Department Discharge Additional Instructions: Take medication as directed Don't eat prior to bed Follow up if symptoms worsen, radiation of pain, sweating, shortness of breath Sepsis Event Note (ED) - Evaluation Sepsis Screening Result: No Definite Risk
--- NOTE | 2020-12-04 06:39 | CR ---
PROCEDURE INFORMATION: Exam: XR Chest Exam date and time: 12/04/2020 5:07 AM Age: 80 years old Clinical indication: Other: Chest pain TECHNIQUE: Imaging protocol: XR of the chest. Views: 1 view. COMPARISON: CR Chest 1V Frontal 07/23/2018 10:05 PM FINDINGS: Lungs: Unremarkable. No consolidation. Pleural spaces: Unremarkable. No pleural effusion. No pneumothorax. Heart/Mediastinum: Unremarkable. No cardiomegaly. Bones/joints: Unremarkable. IMPRESSION: No acute disease.
== END 2020-12-04 06:25 | disposition home or self-care (01) ==
LOC: DL.ED 04:55
DX: R07.89 Other chest pain (principal); I25.10 Atherosclerotic heart disease of native coronary artery without angina pectoris; E78.00 Pure hypercholesterolemia, unspecified; K21.9 Gastro-esophageal reflux disease without esophagitis; Z79.899 Other long term (current) drug therapy; Z79.82 Long term (current) use of aspirin
CPT/HCPCS: 36415; 71045; 80053; 82150; 83735; 83880; 84484; 85025; 85379; 85610; 93005; 99285-25

== ENCOUNTER 2021-04-11 05:38 | Emergency (ER) | payer MEDICARE, OTHER ==
[2021-04-11 05:58] VITALS: BP 141/83; PULSE 71
[2021-04-11] MEDS ORDERED: Metoprolol Tartrate 5 MG/5 ML SDV IVPUSH ONE (06:06)
[2021-04-11] MEDS ORDERED: LORazepam 2 MG/ML SDV IVPUSH ONE (06:06)
[2021-04-11 06:18] LABS: ANION GAP 12.5 mEq/L (7-13)
--- NOTE | 2021-04-11 06:36 | EDM.PDOC ---
<Lisbeth Andres - Last Filed: 04/11/21 06:37> ED HPI GENERAL MEDICAL PROBLEM - General Chief Complaint: Chest Pain Stated Complaint: CHEST PAIN Time Seen by Provider: 04/11/21 06:00 Source of Information: Reports: Patient, RN History Limitations: Reports: No Limitations - History of Present Illness INITIAL COMMENTS - FREE TEXT/NARRATIVE: woke at 5 with chest pain, gone now, cold sx x one week, mostly sinus sx, no cough. No fever, Hx GERD. Denies pain at present just wants to be checked out. Middle Mid-Sternal Pain Score (Numeric/FACES): 5 - Related Data Allergies Allergy/AdvReac Type Severity Reaction Status Date / Time No Known Allergies Allergy Verified 12/24/19 20:18 Home Meds: Home Meds Aspirin [Adult Low Dose Aspirin EC] 162.5 mg PO BID 11/03/13 [History] atorvaSTATin [Lipitor] 10 mg PO BEDTIME 11/03/13 [History] Nitroglycerin [IJP: Nitroglycerin] 1 tab SL ASDIRECTED 12/24/16 [History] Metoprolol Succinate [Toprol XL] 25 mg PO DAILY 10/12/17 [History] Esomeprazole Magnesium [Nexium] 40 mg PO DAILY 04/26/19 [History] Potassium Chloride 10 meq PO DAILY 04/26/19 [History] Past Medical History HEENT History: Reports: Impaired Vision Other HEENT History: Wear corrective lenses Cardiovascular History: Reports: Afib, Arrhythmia, CAD, High Cholesterol Other Cardiovascular History: 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 Respiratory History: Reports: None Gastrointestinal History: Reports: Colon Polyp, Diverticulosis, GERD, Irritable Bowel Syndrome, Other (See Below) Other Gastrointestinal History: GASTRIC EROSIONS. S/P COLONIC TUBULAR ADENOMA Genitourinary History: Reports: None Musculoskeletal History: Reports: Other (See Below) Other Musculoskeletal History: HX OF 'STORAGE GARAGE ATTENDANT'S CRAMP' Neurological History: Reports: Neuropathy, Peripheral, Other (See Below) Other Neuro History: Has had several CT's in past for left sided numbness, no Dx. Psychiatric History: Reports: Anxiety, Panic Attack Endocrine/Metabolic History: Reports: None Hematologic History: Reports: Anemia Immunologic History: Reports: None Oncologic (Cancer) History: Reports: None Dermatologic History: Reports: None - Infectious Disease History Infectious Disease History: Reports: Chicken Pox, Influenza, Measles, Mumps - Past Surgical History Cardiovascular Surgical History: Reports: None GI Surgical History: Reports: Appendectomy, Cholecystectomy, Colonoscopy, EGD Other GI Surgeries/Procedures: hemorrohid repair Dermatological Surgical History: Reports: Other (See Below) Social & Family History - Family History Family Medical History: No Pertinent Family History HEENT: Reports: None Cardiac: Reports: CAD Respiratory: Reports: None GI: Reports: None Musculoskeletal: Reports: None Neurological: Reports: None Psychiatric: Reports: None Endocrine/Metabolic: Reports: None Hematologic: Reports: None Immunologic: Reports: None Dermatologic: Reports: None Oncologic: Reports: None - Tobacco Use Tobacco Use Status *Q: Never Tobacco User - Caffeine Use Caffeine Use: Reports: Coffee, Soda Other Caffeine Use: none since Tuesday Caffeine Use Comment: pt reports 7-8 cups coffee daily - Living Situation & Occupation Living situation: Reports: , with Spouse Occupation: Retired ED ROS GENERAL - Review of Systems Review Of Systems: Comprehensive ROS is negative, except as noted in HPI. ED EXAM, GENERAL - Physical Exam Exam: See Below Exam Limited By: No Limitations General Appearance: Alert, No Apparent Distress Eye Exam: Bilateral Eye: EOMI Ears: Normal External Exam, Hearing Grossly Normal Nose: Normal Inspection Throat/Mouth: Normal Inspection Head: Atraumatic, Normocephalic Neck: Normal Inspection Respiratory/Chest: No Respiratory Distress, Lungs Clear, Normal Breath Sounds Cardiovascular: Normal Peripheral Pulses, Regular Rate, Rhythm GI/Abdominal: Normal Bowel Sounds, Soft, Non-Tender Back Exam: Normal Inspection Extremities: Normal Inspection Neurological: Alert, Oriented, Normal Cognition Psychiatric: Normal Affect, Anxious Skin Exam: Warm, Dry, Normal Color #1 Interpretation EKG Date: 04/11/21 Time: 05:05 Rhythm: NSR [place]: Normal P-Wave: Present QRS: Normal ST-T: Normal QT: Normal [place]/PQ Interval: prolonged Comparison: No Change Departure - Departure Disposition: Home, Self-Care 01 Condition: Good Clinical Impression: Nonspecific chest pain Instructions: Nonspecific Chest Pain, Adult, [id number] Forms: ED Department Discharge Care Plan Goals: The patient was advised of the examination, lab, EKG and repeat lab results during the visit. The patient was encouraged to continue to take his medications as advised. If the patient has any additional symptoms or concerns, the patient should either return to the emergency department or visit his primary care facility. Sepsis Event Note (ED) - Evaluation Sepsis Screening Result: No Definite Risk <Sumanth Valle - Last Filed: 04/11/21 08:50> Course - Vital Signs Last Recorded V/S: Last Vital Signs Temp 98.9 F 04/11/21 05:55 Pulse 71 04/11/21 05:55 Resp 18 04/11/21 05:55 BP 141/83 H 04/11/21 05:55 Pulse Ox 99 04/11/21 05:55 - Orders/Labs/Meds Labs: Laboratory Tests 04/11/21 04/11/21 04/11/21 Range/Units 05:50 05:50 06:08 WBC 5.2 (5.0-10.0) 10^3/uL RBC 3.91 L (4.6-6.2) 10^6/uL Hgb 12.8 L (14.0-18.0) g/dL Hct 37.9 L (40.0-54.0) % MCV 96.9 (80-100) fL MCH 32.7 (27.0-34.0) pg MCHC 33.8 (33.0-35.0) g/dL Plt Count 149 L (150-450) 10^3/uL Neut % (Auto) 45.1 (42.2-75.2) % Lymph % (Auto) 39.2 (20.5-50.1) % Dickens % (Auto) 10.7 H (2-8) % Eos % (Auto) 4.4 H (1.0-3.0) % Baso % (Auto) 0.6 (0.0-1.0) % Sodium 142 (136-145) mmol/L Potassium 3.5 (3.5-5.1) mmol/L Chloride 105 (98-107) mmol/L Carbon Dioxide 28 (21-32) mmol/L Anion Gap 12.5 (7-13) mEq/L BUN 21 H (7-18) mg/dL Creatinine 1.20 (0.70-1.30) mg/dL Est Cr Clr Drug Dosing 54.79 mL/min Estimated GFR (MDRD) 58 BUN/Creatinine Ratio 17.5 (No establ ref range) Glucose 92 (70-99) mg/dL Calcium 8.8 (8.5-10.1) mg/dL Total Bilirubin 0.6 (0.2-1.0) mg/dL AST 17 (15-37) U/L ALT 22 (16-63) U/L Alkaline Phosphatase 75 (46-116) U/L Troponin I High Sens 8 (<=76) pg/mL Total Protein 7.0 (6.4-8.2) g/dL Albumin 3.7 (3.4-5.0) g/dL Globulin 3.3 Albumin/Globulin Ratio 1.1 SARS CoV-2 RNA Rapid MELLISSA Negative (NEGATIVE) 04/11/21 Range/Units 08:02 WBC (5.0-10.0) 10^3/uL RBC (4.6-6.2) 10^6/uL Hgb (14.0-18.0) g/dL Hct (40.0-54.0) % MCV (80-100) fL MCH (27.0-34.0) pg MCHC (33.0-35.0) g/dL Plt Count (150-450) 10^3/uL Neut % (Auto) (42.2-75.2) % Lymph % (Auto) (20.5-50.1) % Dickens % (Auto) (2-8) % Eos % (Auto) (1.0-3.0) % Baso % (Auto) (0.0-1.0) % Sodium (136-145) mmol/L Potassium (3.5-5.1) mmol/L Chloride (98-107) mmol/L Carbon Dioxide (21-32) mmol/L Anion Gap (7-13) mEq/L BUN (7-18) mg/dL Creatinine (0.70-1.30) mg/dL Est Cr Clr Drug Dosing mL/min Estimated GFR (MDRD) BUN/Creatinine Ratio (No establ ref range) Glucose (70-99) mg/dL Calcium (8.5-10.1) mg/dL Total Bilirubin (0.2-1.0) mg/dL AST (15-37) U/L ALT (16-63) U/L Alkaline Phosphatase (46-116) U/L Troponin I High Sens 7 (<=76) pg/mL Total Protein (6.4-8.2) g/dL Albumin (3.4-5.0) g/dL Globulin Albumin/Globulin Ratio SARS CoV-2 RNA Rapid MELLISSA (NEGATIVE) Departure - Departure Time of Disposition: 08:49 Sepsis Event Note (ED) - Focused Exam Vital Signs: Vital Signs Temp Pulse Resp BP Pulse Ox 04/11/21 05:55 98.9 F 71 18 141/83 H 99
--- NOTE | 2021-04-11 08:35 | CR ---
PROCEDURE INFORMATION: Exam: XR Chest Exam date and time: 04/11/2021 6:20 AM Age: 81 years old Clinical indication: Other: Chest pain TECHNIQUE: Imaging protocol: XR of the chest. Views: 1 view. COMPARISON: CR Chest 1V Frontal 12/04/2020 5:07 AM FINDINGS: Lungs: Unremarkable. No consolidation. Pleural spaces: Unremarkable. No pleural effusion. No pneumothorax. Heart/Mediastinum: The cardiomediastinal silhouette is fairly stable in appearance. Bones/joints: Degenerative changes again involve the spine. IMPRESSION: No evidence for acute pulmonary disease.
== END 2021-04-11 08:54 | disposition home or self-care (01) ==
LOC: DL.ED 05:38
DX: R07.2 Precordial pain (principal); I48.91 Unspecified atrial fibrillation; I25.10 Atherosclerotic heart disease of native coronary artery without angina pectoris; E78.00 Pure hypercholesterolemia, unspecified; K21.9 Gastro-esophageal reflux disease without esophagitis; Z79.82 Long term (current) use of aspirin; Z79.899 Other long term (current) drug therapy; Z20.822 Contact with and (suspected) exposure to COVID-19
CPT/HCPCS: 36415; 71045; 80053; 84484; 85025; 93005; 99285; U0002

== ENCOUNTER 2021-06-10 23:23 | Emergency (ER) | payer MEDICARE, OTHER ==
[2021-06-10 23:41] VITALS: BP 150/84; PULSE 91
--- NOTE | 2021-06-11 00:15 | EDM.PDOC ---
ED HPI GENERAL MEDICAL PROBLEM - General Chief Complaint: Abdominal Pain Stated Complaint: LOWER STOMACH Time Seen by Provider: 06/10/21 23:40 Source of Information: Reports: Patient, RN, RN Notes Reviewed History Limitations: Reports: No Limitations - History of Present Illness INITIAL COMMENTS - FREE TEXT/NARRATIVE: Olu is a 81 y/o male who presents to the ED via personal vehicle with complaints of abdominal pain. The patient states his pain began this morning and has waxed and waned in severity over the day. He characterizes the pain as sharp and localized to his left lower abdomen with mild radiation into his left upper quadrant. He denies fever, shaking chills, dyspepsia, nausea, vomiting, dysuria, hematuria, diarrhea, hematochezia, or melena. The patient reports he experienced constipation yesterday, which required two suppositories before he was able to pass a large amount of hard stool. He notes he was able to eat all of his meals today without complication as well as drink fluids per his normal routine. He has taken no medications or performed any supportive cares for his symptoms. - Related Data Allergies Allergy/AdvReac Type Severity Reaction Status Date / Time No Known Allergies Allergy Verified 06/10/21 23:34 Home Meds: Home Meds Aspirin [Adult Low Dose Aspirin EC] 162.5 mg PO BID 11/03/13 [History] atorvaSTATin [Lipitor] 10 mg PO BEDTIME 11/03/13 [History] Nitroglycerin [IJP: Nitroglycerin] 1 tab SL ASDIRECTED 12/24/16 [History] Metoprolol Succinate [Toprol XL] 25 mg PO DAILY 10/12/17 [History] Esomeprazole Magnesium [Nexium] 40 mg PO DAILY 04/26/19 [History] Potassium Chloride 10 meq PO DAILY 04/26/19 [History] Past Medical History HEENT History: Reports: Impaired Vision Other HEENT History: Wear corrective lenses Cardiovascular History: Reports: Afib, Arrhythmia, CAD, High Cholesterol, Hypertension Other Cardiovascular History: 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 Respiratory History: Reports: None Gastrointestinal History: Reports: Colon Polyp, Diverticulosis, GERD, Irritable Bowel Syndrome, Other (See Below) Other Gastrointestinal History: GASTRIC EROSIONS. S/P COLONIC TUBULAR ADENOMA. Reports hernia to R testicle Genitourinary History: Reports: None Musculoskeletal History: Reports: Other (See Below) Other Musculoskeletal History: HX OF 'LACE MENDER'S CRAMP' Neurological History: Reports: Neuropathy, Peripheral, Other (See Below) Other Neuro History: Has had several CT's in past for left sided numbness, no Dx. Psychiatric History: Reports: Anxiety, Panic Attack Endocrine/Metabolic History: Reports: None Hematologic History: Reports: Anemia Immunologic History: Reports: None Oncologic (Cancer) History: Reports: None Dermatologic History: Reports: None - Infectious Disease History Infectious Disease History: Reports: Chicken Pox, Influenza, Measles, Mumps - Past Surgical History Cardiovascular Surgical History: Reports: None GI Surgical History: Reports: Appendectomy, Cholecystectomy, Colonoscopy, EGD Other GI Surgeries/Procedures: hemorrohid repair Dermatological Surgical History: Reports: Other (See Below) Social & Family History - Family History Family Medical History: No Pertinent Family History HEENT: Reports: None Cardiac: Reports: CAD Respiratory: Reports: None GI: Reports: None Musculoskeletal: Reports: None Neurological: Reports: None Psychiatric: Reports: None Endocrine/Metabolic: Reports: None Hematologic: Reports: None Immunologic: Reports: None Dermatologic: Reports: None Oncologic: Reports: None - Tobacco Use Tobacco Use Status *Q: Never Tobacco User Second Hand Smoke Exposure: No - Caffeine Use Caffeine Use: Reports: None Other Caffeine Use: none since Tuesday Caffeine Use Comment: pt reports 7-8 cups coffee daily - Recreational Drug Use Recreational Drug Use: No - Living Situation & Occupation Living situation: Reports: , with Spouse Occupation: Retired ED ROS GENERAL - Review of Systems Review Of Systems: Comprehensive ROS is negative, except as noted in HPI. ED EXAM, GI/ABD - Physical Exam Exam: See Below Exam Limited By: No Limitations General Appearance: Alert, No Apparent Distress, Other. No: Active Emesis Eyes: Bilateral: Normal Appearance, EOMI Ears: Normal External Exam, Hearing Grossly Normal Nose: Normal Inspection, Normal Mucosa, No Blood Throat/Mouth: Normal Inspection, Normal Oropharynx, Normal Voice, No Airway Compromise Head: Atraumatic, Normocephalic Neck: Normal Inspection, Supple, Non-Tender, Full Range of Motion. No: Lymphadenopathy (L), Lymphadenopathy (R) Course - Vital Signs Last Recorded V/S: Last Vital Signs Temp 98.5 F 06/10/21 23:35 Pulse 91 06/10/21 23:35 Resp 18 06/10/21 23:35 BP 150/84 H 06/10/21 23:35 Pulse Ox 99 06/10/21 23:35 - Orders/Labs/Meds Orders: Active Orders 24 hr Category Date Time Status UA RFX SUGAR AND CULT IF INDIC [URIN] Stat Lab 06/10/21 23:46 Ordered Labs: Laboratory Tests 06/11/21 06/11/21 Range/Units 00:10 00:10 WBC 5.6 (5.0-10.0) 10^3/uL RBC 4.02 L (4.6-6.2) 10^6/uL Hgb 13.1 L (14.0-18.0) g/dL Hct 39.2 L (40.0-54.0) % MCV 97.5 (80-100) fL MCH 32.6 (27.0-34.0) pg MCHC 33.4 (33.0-35.0) g/dL Plt Count 159 (150-450) 10^3/uL Neut % (Auto) 50.5 (42.2-75.2) % Lymph % (Auto) 30.4 (20.5-50.1) % Robertson % (Auto) 11.9 H (2-8) % Eos % (Auto) 6.8 H (1.0-3.0) % Baso % (Auto) 0.4 (0.0-1.0) % Sodium 143 (136-145) mmol/L Potassium 4.1 (3.5-5.1) mmol/L Chloride 105 (98-107) mmol/L Carbon Dioxide 28 (21-32) mmol/L Anion Gap 14.1 H (7-13) mEq/L BUN 22 H (7-18) mg/dL Creatinine 1.26 (0.70-1.30) mg/dL Est Cr Clr Drug Dosing 52.18 mL/min Estimated GFR (MDRD) 55 BUN/Creatinine Ratio 17.5 (No establ ref range) Glucose 110 H (70-99) mg/dL Calcium 9.1 (8.5-10.1) mg/dL Magnesium 2.2 (1.8-2.4) mg/dL Total Bilirubin 0.5 (0.2-1.0) mg/dL AST 21 (15-37) U/L ALT 27 (16-63) U/L Alkaline Phosphatase 73 (46-116) U/L C-Reactive Protein < 0.2 (0.0-0.9) mg/dL Total Protein 7.3 (6.4-8.2) g/dL Albumin 3.9 (3.4-5.0) g/dL Globulin 3.4 Albumin/Globulin Ratio 1.1 - Re-Assessments/Exams Free Text/Narrative Re-Assessment/Exam: 06/11/21 Patient passed a large amount of gas several times following his assessment. He states his abdominal pain in now gone. He is agreeable to staying for labs, but notes he would not like to receive imaging if his blood work is appropriate. Findings of examination and lab work reviewed with patient. He continues to state his pain is completely gone. Supportive cares for preventing constipation reviewed. Patient instructed to follow up with primary care provider regarding todays visit. Red flag signs and symptoms which would warrant immediate reevaluation reviewed. Patient verbalized understanding and agreement with the plan of care. Departure - Departure Time of Disposition: 00:41 Disposition: Home, Self-Care 01 Condition: Good Clinical Impression: Abdominal bloating - Discharge Information *PRESCRIPTION DRUG MONITORING PROGRAM REVIEWED*: Not Applicable *COPY OF PRESCRIPTION DRUG MONITORING REPORT IN PATIENT RAINER: Not Applicable Instructions: Abdominal Bloating, Constipation, Adult, [id number] Forms: ED Department Discharge Additional Instructions: 1.) Start your Metamucil tomorrow morning. 2.) Increase your water intake. 3.) Increase your daily intake of veggies, fruits, and other forms of fiber. 4.) Follow up with your primary care provider in 5-7 days or return to the emergency department with any return of symptoms. Sepsis Event Note (ED) - Evaluation Sepsis Screening Result: No Definite Risk - Focused Exam Vital Signs: Vital Signs Temp Pulse Resp BP Pulse Ox 06/10/21 23:35 98.5 F 91 18 150/84 H 99 - My Orders Last 24 Hours: My Active Orders 06/10/21 23:46 UA RFX SUGAR AND CULT IF INDIC [URIN] Stat - Assessment/Plan Last 24 Hours: My Active Orders 06/10/21 23:46 UA RFX SUGAR AND CULT IF INDIC [URIN] Stat
[2021-06-11 00:33] LABS: ANION GAP 14.1 mEq/L (7-13); CHLORIDE,CL 105 mmol/L (98-107); SODIUM,NA 143 mmol/L (136-145)
== END 2021-06-11 00:52 | disposition home or self-care (01) ==
LOC: DL.ED 23:23
DX: R14.0 Abdominal distension (gaseous) (principal); I48.91 Unspecified atrial fibrillation; I25.10 Atherosclerotic heart disease of native coronary artery without angina pectoris; E78.00 Pure hypercholesterolemia, unspecified; I10 Essential (primary) hypertension; K21.9 Gastro-esophageal reflux disease without esophagitis; Z79.82 Long term (current) use of aspirin; Z79.899 Other long term (current) drug therapy
CPT/HCPCS: 36415; 80053; 83735; 85025; 86140; 99284

== ENCOUNTER 2021-08-14 14:45 | Emergency (ER) | payer MEDICARE, OTHER ==
[2021-08-14 15:43] VITALS: BP 142/85; PULSE 98
[2021-08-14 15:54] LABS: CHLORIDE,CL 105 mmol/L (98-107); SODIUM,NA 143 mmol/L (136-145)
== END 2021-08-14 17:03 | disposition home or self-care (01) ==
LOC: DL.ED 14:45
DX: R00.0 Tachycardia, unspecified (principal); I48.91 Unspecified atrial fibrillation; I25.10 Atherosclerotic heart disease of native coronary artery without angina pectoris; E78.00 Pure hypercholesterolemia, unspecified; I10 Essential (primary) hypertension; K21.9 Gastro-esophageal reflux disease without esophagitis; Z79.899 Other long term (current) drug therapy; Z79.82 Long term (current) use of aspirin
CPT/HCPCS: 36415; 80053; 80307; 83605; 84484; 85025; 86140; 93005; 99285-25

== ENCOUNTER 2021-09-06 18:59 | Emergency (ER) | payer MEDICARE, OTHER ==
[2021-09-06 21:09] LABS: ANION GAP 15.7 mEq/L (7-13)
[2021-09-06] MEDS ORDERED: Iopamidol 612 MG/ML 100 ML Bottle IVPUSH ONE (21:28)
[2021-09-06] MEDS ORDERED: Ciprofloxacin 500 MG Tab PO ONE (23:21)
[2021-09-06] MEDS ORDERED: metroNIDAZOLE 250 MG Tab PO ONE (23:21)
[2021-09-06 23:36] VITALS: BP 136/70; PULSE 65
== END 2021-09-06 23:44 | disposition home or self-care (01) ==
LOC: DL.ED 18:59
DX: K57.32 Diverticulitis of large intestine without perforation or abscess without bleeding (principal); I48.91 Unspecified atrial fibrillation; I25.10 Atherosclerotic heart disease of native coronary artery without angina pectoris; E78.00 Pure hypercholesterolemia, unspecified; I10 Essential (primary) hypertension; K21.9 Gastro-esophageal reflux disease without esophagitis; Z79.899 Other long term (current) drug therapy; Z79.82 Long term (current) use of aspirin
CPT/HCPCS: 36415; 74177; 80053; 81003; 82150; 83605; 83690; 85025; 87040; 99284; A9270; Q9967

== ENCOUNTER 2021-09-16 10:02 | Day surgery (SDC) | payer MEDICARE, OTHER ==
[2021-09-16] MEDS ORDERED: Dexamethasone 4 MG/ML SDV IV ONE (10:03)
[2021-09-16] MEDS ORDERED: Sodium Chloride 0.9% 10 ML Syringe IV ONE (10:03)
[2021-09-16] MEDS ORDERED: Midazolam 1 MG/ML 2 ML SDV IV ONE (10:03)
[2021-09-16] MEDS ORDERED: Cataract Ophth Solution EYELF ONE (10:15)
[2021-09-16] MEDS ORDERED: Ondansetron 4 MG/2 ML SDV IVPUSH PRN (10:15)
[2021-09-16] MEDS ORDERED: Moxifloxacin 0.5% Ophth Soln 3 ML Bottle EYELF ONE (10:15)
[2021-09-16] MEDS ORDERED: Sodium Chloride 0.9% 10 ML Syringe FLUSH PRN (10:15)
[2021-09-16] MEDS ORDERED: Acetaminophen/Codeine 300-30 MG Tab PO PRN (10:15)
[2021-09-16] MEDS ORDERED: Proparacaine 0.5% Ophth Soln 15 ML Bottle EYELF ONE (10:15)
[2021-09-16] MEDS ORDERED: Acetaminophen 325 MG Tab PO PRN (10:15)
[2021-09-16] MEDS ORDERED: Povidone-Iodine 5% Sterile Ophth Soln 30 ML Bottle EYELF ONE ×2 (10:15→11:08)
[2021-09-16] MEDS ORDERED: Phenylephrine 10% Ophth Soln 5 ML Bot EYELF ONE (10:15)
[2021-09-16] MEDS ORDERED: Tropicamide 1% Ophth Soln 15 ML Bottle EYELF ONE (10:15)
[2021-09-16] MEDS ORDERED: Timolol Maleate 0.5% Ophth Soln 5 ML Bottle EYELF ONE (10:15)
[2021-09-16] MEDS ORDERED: Tetracaine HCl/PF 0.5% 4 ML Bottle EYELF ONE (11:07)
[2021-09-16] MEDS ORDERED: Diclofenac Sodium 0.1% Ophth Soln 5 ML Bottle EYELF ONE (11:08)
[2021-09-16] MEDS ORDERED: Lidocaine 1% 30 ML SDV ONE (11:08)
[2021-09-16] MEDS ORDERED: Dexamethasone/Neomycin/Polymyxin B Ophth Oint 3.5 GM Tube EYELF ONE (11:08)
[2021-09-16] MEDS ORDERED: Apraclonidine 0.5% Ophth Soln 5 ML Bot EYELF ONE (11:08)
[2021-09-16] MEDS ORDERED: Chondroitin Sulfate/Hyaluronate Sodium Ophth Inj 0.75 ML Syringe EYELF ONE (11:09)
[2021-09-16] MEDS ORDERED: Vancomycin 500 MG SDV EYELF ONE (11:09)
[2021-09-16] MEDS ORDERED: Balanced Salt Solution Ophth Irrig 500 ML Bottle IOCULAR ONE (11:09)
[2021-09-16] MEDS ORDERED: Dexamethasone 4 MG/ML SDV IOCULAR ONE (11:15)
[2021-09-16 12:24] VITALS: BP 120/67; PULSE 77
== END 2021-09-16 12:30 | disposition home or self-care (01) ==
LOC: DL.SDS 10:02
PROVIDERS: ATTEND Ophthalmology
DX: H25.812 Combined forms of age-related cataract, left eye (principal); I25.10 Atherosclerotic heart disease of native coronary artery without angina pectoris; I47.9 Paroxysmal tachycardia, unspecified; E78.2 Mixed hyperlipidemia; K57.92 Diverticulitis of intestine, part unspecified, without perforation or abscess without bleeding; R73.01 Impaired fasting glucose; Z98.890 Other specified postprocedural states; F41.9 Anxiety disorder, unspecified; Z90.49 Acquired absence of other specified parts of digestive tract; Z79.899 Other long term (current) drug therapy
CPT/HCPCS: 66984; A9270; J1100; J2250; J3370; J3490; V2632; 00142

== ENCOUNTER 2021-09-19 21:21 | Emergency (ER) | payer MEDICARE, OTHER ==
[2021-09-19 21:33] VITALS: BP 138/78; PULSE 82
== END 2021-09-19 22:09 | disposition left against medical advice (07) ==
LOC: DL.ED 21:21
DX: Z53.21 Procedure and treatment not carried out due to patient leaving prior to being seen by health care provider (principal)

== ENCOUNTER 2021-09-19 23:54 | Emergency (ER) | payer MEDICARE, OTHER ==
[2021-09-20] MEDS ORDERED: GI Cocktail Oral Solution 30 ML PO ONE (01:04)
[2021-09-20 02:10] VITALS: BP 136/77; PULSE 77
== END 2021-09-20 02:05 | disposition home or self-care (01) ==
LOC: DL.ED 23:54
DX: K21.00 Gastro-esophageal reflux disease with esophagitis, without bleeding (principal); T36.95XA Adverse effect of unspecified systemic antibiotic, initial encounter; I48.91 Unspecified atrial fibrillation; I25.10 Atherosclerotic heart disease of native coronary artery without angina pectoris; E78.00 Pure hypercholesterolemia, unspecified; I10 Essential (primary) hypertension; Z79.899 Other long term (current) drug therapy; Z79.82 Long term (current) use of aspirin
CPT/HCPCS: 36415; 80053; 83690; 83735; 84484; 85025; 93005; 93010; 99283; 99285; A9270

== ENCOUNTER 2021-09-23 06:20 | Day surgery (SDC) | payer MEDICARE, OTHER ==
[~2021-09-23 06:20] MED LIST changes: -Dextrose 5%-0.45% NaCl 1,000 ML IV SCH; +Proparacaine 0.5% Ophth Soln 15 ML Bottle ONE; -Sodium Chloride 0.9% 10 ML Syringe FLUSH PRN
[2021-09-23] MEDS ORDERED: Dexamethasone 4 MG/ML SDV IV ONE (06:21)
[2021-09-23] MEDS ORDERED: Midazolam 1 MG/ML 2 ML SDV IV ONE (06:21)
[2021-09-23] MEDS ORDERED: Acetaminophen 325 MG Tab PO PRN (06:30)
[2021-09-23] MEDS ORDERED: Sodium Chloride 0.9% 10 ML Syringe FLUSH PRN (06:30)
[2021-09-23] MEDS ORDERED: Moxifloxacin 0.5% Ophth Soln 3 ML Bottle EYERT ONE (06:30)
[2021-09-23] MEDS ORDERED: Povidone-Iodine 5% Sterile Ophth Soln 30 ML Bottle EYERT ONE ×2 (06:30→08:18)
[2021-09-23] MEDS ORDERED: Tropicamide 1% Ophth Soln 15 ML Bottle EYERT ONE (06:30)
[2021-09-23] MEDS ORDERED: Ondansetron 4 MG/2 ML SDV IVPUSH PRN (06:30)
[2021-09-23] MEDS ORDERED: Acetaminophen/Codeine 300-30 MG Tab PO PRN (06:30)
[2021-09-23] MEDS ORDERED: Phenylephrine 10% Ophth Soln 5 ML Bot EYERT ONE (06:30)
[2021-09-23] MEDS ORDERED: Timolol Maleate 0.5% Ophth Soln 5 ML Bottle EYERT ONE (06:30)
[2021-09-23] MEDS ORDERED: Cataract Ophth Solution EYERT ONE (06:30)
[2021-09-23] MEDS ORDERED: Proparacaine 0.5% Ophth Soln 15 ML Bottle EYERT ONE (06:30)
[2021-09-23] MEDS ORDERED: Tetracaine HCl/PF 0.5% 4 ML Bottle EYERT ONE (08:16)
[2021-09-23] MEDS ORDERED: Lidocaine 1% 30 ML SDV ONE (08:17)
[2021-09-23] MEDS ORDERED: Apraclonidine 0.5% Ophth Soln 5 ML Bot EYERT ONE (08:18)
[2021-09-23] MEDS ORDERED: Diclofenac Sodium 0.1% Ophth Soln 5 ML Bottle EYERT ONE (08:19)
[2021-09-23] MEDS ORDERED: Dexamethasone/Neomycin/Polymyxin B Ophth Oint 3.5 GM Tube EYERT ONE (08:19)
[2021-09-23] MEDS ORDERED: Vancomycin 500 MG SDV EYERT ONE (08:20)
[2021-09-23] MEDS ORDERED: Balanced Salt Solution Ophth Irrig 500 ML Bottle IOCULAR ONE (08:20)
[2021-09-23] MEDS ORDERED: Chondroitin Sulfate/Hyaluronate Sodium Ophth Inj 0.5 ML Syringe IOCULAR ONE (08:21)
[2021-09-23] MEDS ORDERED: Dexamethasone 4 MG/ML SDV IOCULAR ONE (08:25)
[2021-09-23 11:18] VITALS: BP 130/72; PULSE 16
== END 2021-09-23 09:33 | disposition home or self-care (01) ==
LOC: DL.SDS 06:20
PROVIDERS: ATTEND Ophthalmology
DX: H25.811 Combined forms of age-related cataract, right eye (principal); I25.10 Atherosclerotic heart disease of native coronary artery without angina pectoris; K21.9 Gastro-esophageal reflux disease without esophagitis; E78.2 Mixed hyperlipidemia; I10 Essential (primary) hypertension; R73.01 Impaired fasting glucose; F41.0 Panic disorder [episodic paroxysmal anxiety]; I47.9 Paroxysmal tachycardia, unspecified; K57.92 Diverticulitis of intestine, part unspecified, without perforation or abscess without bleeding; Z90.49 Acquired absence of other specified parts of digestive tract; Z79.899 Other long term (current) drug therapy; Z98.890 Other specified postprocedural states; Z79.82 Long term (current) use of aspirin
CPT/HCPCS: 66984; A9270; J1100; J2250; J3370; J3490; V2632

== ENCOUNTER 2021-10-12 05:19 | Day surgery (SDC) | payer MEDICARE, OTHER ==
[2021-10-12] MEDS ORDERED: Midazolam 1 MG/ML 2 ML SDV IV ONE ×4 (05:20→07:13)
[2021-10-12] MEDS ORDERED: fentaNYL 100 MCG/2 ML SDV IV ONE ×3 (05:20→07:07)
[2021-10-12] MEDS ORDERED: Dextrose 5%-0.45% NaCl 1,000 ML IV SCH (06:00)
[2021-10-12] MEDS ORDERED: Sodium Chloride 0.9% 10 ML Syringe FLUSH PRN (06:00)
[2021-10-12] MEDS ORDERED: Midazolam 1 MG/ML 2 ML SDV ONE (06:00)
[2021-10-12] MEDS ORDERED: fentaNYL 100 MCG/2 ML SDV ONE (06:00)
[2021-10-12] MEDS ORDERED: Sodium Chloride 0.9% 10 ML Syringe FLUSH SCH (09:00)
[2021-10-12 10:18] VITALS: BP 127/58; PULSE 59
== END 2021-10-12 09:25 | disposition home or self-care (01) ==
LOC: DL.ENDO 05:19
PROVIDERS: ATTEND Internal Medicine Gastroenterology
DX: K57.30 Diverticulosis of large intestine without perforation or abscess without bleeding (principal); K58.9 Irritable bowel syndrome, unspecified; K44.9 Diaphragmatic hernia without obstruction or gangrene; F41.1 Generalized anxiety disorder; I25.10 Atherosclerotic heart disease of native coronary artery without angina pectoris; E78.00 Pure hypercholesterolemia, unspecified; D64.9 Anemia, unspecified; K21.9 Gastro-esophageal reflux disease without esophagitis; Z90.49 Acquired absence of other specified parts of digestive tract; Z87.19 Personal history of other diseases of the digestive system
CPT/HCPCS: J2250; J3010; J7042

== ENCOUNTER 2021-11-18 08:20 | Emergency (ER) | payer MEDICARE, OTHER ==
[2021-11-18 08:40] VITALS: BP 148/82; PULSE 68
[2021-11-18 09:12] LABS: ANION GAP 11.3 mEq/L (7-13)
== END 2021-11-18 09:50 | disposition home or self-care (01) ==
LOC: DL.ED 08:20
DX: S29.011A Strain of muscle and tendon of front wall of thorax, initial encounter (principal); I48.91 Unspecified atrial fibrillation; I25.10 Atherosclerotic heart disease of native coronary artery without angina pectoris; E78.00 Pure hypercholesterolemia, unspecified; I10 Essential (primary) hypertension; K21.9 Gastro-esophageal reflux disease without esophagitis; Z79.82 Long term (current) use of aspirin; Z79.899 Other long term (current) drug therapy; X50.0XXA Overexertion from strenuous movement or load, initial encounter; Y99.0 Civilian activity done for income or pay
CPT/HCPCS: 36415; 71045; 80053; 83605; 84484; 85025; 85379; 85610; 93005; 93010; 99284; 99285-25

== ENCOUNTER 2022-01-05 07:27 | Emergency (ER) | payer MEDICARE, OTHER ==
[2022-01-05 07:49] VITALS: BP 119/82; PULSE 70
[2022-01-05] MEDS ORDERED: Sodium Chloride 0.9% 10 ML Syringe FLUSH PRN (07:51)
[2022-01-05 08:39] LABS: ANION GAP 12.8 mEq/L (7-13); CHLORIDE,CL 109 mmol/L (98-107); SODIUM,NA 144 mmol/L (136-145)
[2022-01-05 08:42] LABS: ESTIMATED GFR 60 mL/min (>=60)
== END 2022-01-05 09:21 | disposition home or self-care (01) ==
LOC: DL.ED 07:27
DX: R07.9 Chest pain, unspecified (principal); I48.91 Unspecified atrial fibrillation; I25.10 Atherosclerotic heart disease of native coronary artery without angina pectoris; E78.00 Pure hypercholesterolemia, unspecified; I10 Essential (primary) hypertension; K21.9 Gastro-esophageal reflux disease without esophagitis; Z79.82 Long term (current) use of aspirin; Z79.899 Other long term (current) drug therapy; Z86.16 Personal history of COVID-19
CPT/HCPCS: 36415; 71045; 80053; 83690; 83735; 83880; 84484; 85025; 86140; 93005; 99285

== ENCOUNTER 2022-01-07 22:38 | Emergency (ER) | payer MEDICARE, OTHER ==
[2022-01-07 22:59] VITALS: BP 153/94; PULSE 95
== END 2022-01-07 23:56 | disposition home or self-care (01) ==
LOC: DL.ED 22:38
DX: K59.00 Constipation, unspecified (principal); I25.10 Atherosclerotic heart disease of native coronary artery without angina pectoris; K21.9 Gastro-esophageal reflux disease without esophagitis; I10 Essential (primary) hypertension; Z79.899 Other long term (current) drug therapy; Z79.82 Long term (current) use of aspirin; Z86.16 Personal history of COVID-19; Z90.49 Acquired absence of other specified parts of digestive tract
CPT/HCPCS: 74018; 99283

== ENCOUNTER 2022-05-12 15:46 | Emergency (ER) | payer MEDICARE, OTHER ==
[2022-05-12 15:59] VITALS: BP 142/89; PULSE 87
[2022-05-12] MEDS ORDERED: Sodium Chloride 0.9% 10 ML Syringe FLUSH PRN (16:04)
[2022-05-12] MEDS ORDERED: Famotidine 20 MG/2 ML SDV IVPUSH ONE (16:05)
[2022-05-12 16:21] LABS: PTT,PARTIAL THROMBOPLSTIN TIME 22.5 SEC (22.0-34.0)
[2022-05-12 16:34] LABS: ANION GAP 11.9 mEq/L (7-13)
== END 2022-05-12 17:16 | disposition home or self-care (01) ==
LOC: DL.ED 15:46
DX: R10.13 Epigastric pain (principal); I25.10 Atherosclerotic heart disease of native coronary artery without angina pectoris; E78.00 Pure hypercholesterolemia, unspecified; I10 Essential (primary) hypertension; Z79.899 Other long term (current) drug therapy; Z79.82 Long term (current) use of aspirin; Z90.49 Acquired absence of other specified parts of digestive tract
CPT/HCPCS: 36415; 71045; 80053; 82150; 83690; 84484; 85025; 85610; 85730; 93005; 99285

== ENCOUNTER 2022-06-29 04:16 | Emergency (ER) | payer MEDICARE, OTHER ==
[2022-06-29] MEDS ORDERED: Aspirin 81 MG Tab.Chew PO ONE (04:30)
[2022-06-29] MEDS ORDERED: Aspirin 81 MG Tab.Chew ONE (04:44)
[2022-06-29 04:56] VITALS: BP 145/85; PULSE 88
[2022-06-29 04:58] LABS: ANION GAP 13.9 mEq/L (7-13)
== END 2022-06-29 07:01 | disposition home or self-care (01) ==
LOC: DL.ED 04:16
DX: R07.89 Other chest pain (principal); K21.9 Gastro-esophageal reflux disease without esophagitis; I48.91 Unspecified atrial fibrillation; I25.10 Atherosclerotic heart disease of native coronary artery without angina pectoris; E78.00 Pure hypercholesterolemia, unspecified; I10 Essential (primary) hypertension; Z79.899 Other long term (current) drug therapy; Z79.82 Long term (current) use of aspirin
CPT/HCPCS: 36415; 71045; 80053; 83735; 84484; 85025; 93005; 99285; A9270

== ENCOUNTER 2022-07-19 07:43 | Emergency (ER) | payer MEDICARE, OTHER ==
[2022-07-19 08:48] LABS: ANION GAP 11.1 mEq/L (7-13)
[2022-07-19 09:12] VITALS: BP 143/80; PULSE 70
== END 2022-07-19 09:25 | disposition home or self-care (01) ==
LOC: DL.ED 07:43
DX: R20.2 Paresthesia of skin (principal); I25.10 Atherosclerotic heart disease of native coronary artery without angina pectoris; E78.00 Pure hypercholesterolemia, unspecified; I10 Essential (primary) hypertension; K21.9 Gastro-esophageal reflux disease without esophagitis; Z79.82 Long term (current) use of aspirin; Z79.899 Other long term (current) drug therapy
CPT/HCPCS: 36415; 70450; 80053; 83735; 85025; 99284

== ENCOUNTER 2022-11-10 09:45 | Emergency (ER) | payer MEDICARE, OTHER ==
[2022-11-10] MEDS ORDERED: Iopamidol 755 Mg/ML 100 ML Bottle IVPUSH ONE (10:26)
[2022-11-10 10:28] LABS: BASOPHILS PERCENT AUTO 0.2 % (0.0-1.0); EOSINOPHILS PERCENT AUTO 2.4 % (1.0-3.0); HEMATOCRIT 38.1 % (40.0-54.0); HEMOGLOBIN 14.4 g/dL (14.0-18.0); MEAN CORPUSCULAR HEMOGLOBIN 36.7 pg (27.0-34.0); MEAN CORPUSCULAR HGB CONC 37.8 g/dL (33.0-35.0); MEAN CORPUSCULAR VOLUME 97.2 fL (80-100); MONOCYTES PERCENT AUTO 11.3 % (2-8); NEUTROPHILS PERCENT AUTO 64.1 % (42.2-75.2); PLATELET COUNT,PLT 170 10^3/uL (150-450); RED BLOOD CELL COUNT 3.92 10^6/uL (4.6-6.2); WHITE BLOOD CELL COUNT,WBC 5.4 10^3/uL (5.0-10.0)
[2022-11-10 10:41] LABS: A/G RATIO 1.3; ALBUMIN 4.1 g/dL (3.4-5.0); BILIRUBIN TOTAL 0.9 mg/dL (0.2-1.0); BUN/CREATININE RATIO 14.4 (No establ ref range); CALCIUM 9.2 mg/dL (8.5-10.1); CREATININE 1.18 mg/dL (0.70-1.30); EST CRCL DRUG DOSING (CG) 54.8 mL/min; PROTEIN TOTAL,TP 7.2 g/dL (6.4-8.2)
[2022-11-10 13:38] VITALS: BP 146/81; PULSE 69
== END 2022-11-10 13:29 | disposition home or self-care (01) ==
LOC: DL.ED 09:45
DX: I66.9 Occlusion and stenosis of unspecified cerebral artery (principal); K59.01 Slow transit constipation; K62.5 Hemorrhage of anus and rectum; I48.91 Unspecified atrial fibrillation; I25.10 Atherosclerotic heart disease of native coronary artery without angina pectoris; I10 Essential (primary) hypertension; E78.00 Pure hypercholesterolemia, unspecified; K21.9 Gastro-esophageal reflux disease without esophagitis; Z79.82 Long term (current) use of aspirin; Z79.899 Other long term (current) drug therapy
CPT/HCPCS: 36415; 70496; 70498; 80053; 82947; 85025; 99284; Q9967

== ENCOUNTER 2023-03-13 21:25 | Emergency (ER) | payer MEDICARE, OTHER ==
[2023-03-14 01:26] VITALS: BP 163/89; PULSE 71
== END 2023-03-14 01:25 | disposition home or self-care (01) ==
LOC: DL.ED 21:25
DX: S09.90XA Unspecified injury of head, initial encounter (principal); I25.10 Atherosclerotic heart disease of native coronary artery without angina pectoris; E78.00 Pure hypercholesterolemia, unspecified; I10 Essential (primary) hypertension; Z79.899 Other long term (current) drug therapy; Z79.82 Long term (current) use of aspirin; Z90.49 Acquired absence of other specified parts of digestive tract; W01.198A Fall on same level from slipping, tripping and stumbling with subsequent striking against other object, initial encounter
CPT/HCPCS: 70450; 99282; 99283

== ENCOUNTER 2023-06-06 01:59 | Emergency (ER) | payer MEDICARE, OTHER ==
[2023-06-06] MEDS ORDERED: Aspirin 81 MG Tab.Chew PO ONE (02:19)
[2023-06-06] MEDS ORDERED: Sodium Chloride 0.9% 10 ML Syringe FLUSH PRN (02:19)
[2023-06-06 02:21] VITALS: BP 164/85; PULSE 81
[2023-06-06 02:28] LABS: BASOPHILS PERCENT AUTO 0.1 % (0.0-1.0); EOSINOPHILS PERCENT AUTO 1.8 % (1.0-3.0); HEMATOCRIT 38.5 % (40.0-54.0); HEMOGLOBIN 13.1 g/dL (14.0-18.0); LYMPHOCYTES PERCENT AUTO 18.8 % (20.5-50.1); MEAN CORPUSCULAR HEMOGLOBIN 32.4 pg (27.0-34.0); MEAN CORPUSCULAR VOLUME 95.3 fL (80-100); MONOCYTES PERCENT AUTO 9.6 % (2-8); NEUTROPHILS PERCENT AUTO 69.7 % (42.2-75.2); PLATELET COUNT,PLT 160 10^3/uL (150-450); RED BLOOD CELL COUNT 4.04 10^6/uL (4.6-6.2); WHITE BLOOD CELL COUNT,WBC 8.4 10^3/uL (5.0-10.0)
[2023-06-06 02:41] LABS: INR 1.8 (0.9-1.2); PROTHROMBIN TIME 18.3 SEC (9.0-12.0); PTT,PARTIAL THROMBOPLSTIN TIME 29.7 SEC (22.0-34.0)
[2023-06-06 02:47] LABS: A/G RATIO 1.1; ALBUMIN 3.7 g/dL (3.4-5.0); ANION GAP 12.5 mEq/L (7-13); BILIRUBIN TOTAL 0.6 mg/dL (0.2-1.0); BUN/CREATININE RATIO 20.5 (No establ ref range); CALCIUM 8.7 mg/dL (8.5-10.1); CREATININE 1.12 mg/dL (0.70-1.30); EST CRCL DRUG DOSING (CG) 55.09 mL/min; MAGNESIUM 1.7 mg/dL (1.8-2.4); POTASSIUM,K 3.5 mmol/L (3.5-5.1); PROTEIN TOTAL,TP 7.2 g/dL (6.4-8.2)
[2023-06-06 02:59] LABS: APPEARANCE,URINE CLEAR (CLEAR); BILIRUBIN,URINE NEGATIVE (NEGATIVE); COLOR,URINE YELLOW (YELLOW); GLUCOSE,URINE NEGATIVE (NEGATIVE); KETONES,URINE TRACE (NEGATIVE); LEUKOCYTE ESTERASE,URINE NEGATIVE (NEGATIVE); NITRITE,URINE NEGATIVE (NEGATIVE); OCCULT BLOOD,URINE TRACE-INTACT (NEGATIVE); PROTEIN,URINE NEGATIVE (NEGATIVE); UROBILINOGEN,URINE 0.2 mg/dL (0.2-1.0)
[2023-06-06 03:55] LABS: BACTERIA,URINE FEW /HPF (0-FEW/HPF); EPITHELIAL CELLS,URINE RARE /HPF (NOT SEEN); MUCUS,URINE FEW /LPF (NOT SEEN); WBC,URINE 0-5 /HPF (0-5/HPF)
== END 2023-06-06 04:55 | disposition home or self-care (01) ==
LOC: DL.ED 01:59
DX: K21.9 Gastro-esophageal reflux disease without esophagitis (principal); E78.00 Pure hypercholesterolemia, unspecified; I25.10 Atherosclerotic heart disease of native coronary artery without angina pectoris; I10 Essential (primary) hypertension; Z79.899 Other long term (current) drug therapy; Z79.82 Long term (current) use of aspirin; Z90.49 Acquired absence of other specified parts of digestive tract
CPT/HCPCS: 36415; 80053; 81001; 83735; 84484; 85025; 85610; 85730; 93005; 93010; 99284; A9270; J3490

== ENCOUNTER 2023-06-21 12:59 | Emergency (ER) | payer MEDICARE, OTHER ==
[2023-06-21] MEDS ORDERED: Sodium Chloride 0.9% 10 ML Syringe FLUSH PRN (13:12)
[2023-06-21] MEDS ORDERED: Potassium Chloride 20 MEQ in Premix Bag 1 BAG IV ONE (13:13)
[2023-06-21] MEDS ORDERED: Lidocaine 1% 5 ML VIAL INJECT ONE (13:13)
[2023-06-21] MEDS ORDERED: Potassium Chloride 10 MEQ Tab.ER PO ONE (13:14)
[2023-06-21 13:48] LABS: ANION GAP 13.8 mEq/L (7-13); BLOOD UREA NITROGEN,BUN 19 mg/dL (7-18); CALCIUM 8.8 mg/dL (8.5-10.1); CARBON DIOXIDE,CO2 27 mmol/L (21-32); CHLORIDE,CL 105 mmol/L (98-107); CREATININE 1.21 mg/dL (0.70-1.30); GLUCOSE RANDOM 96 mg/dL (70-99); POTASSIUM,K 2.8 mmol/L (3.5-5.1); SODIUM,NA 143 mmol/L (136-145)
[2023-06-21 13:52] LABS: ESTIMATED GFR 60 mL/min (>=60)
[2023-06-21 15:24] VITALS: BP 131/89; PULSE 91
== END 2023-06-21 15:33 | disposition home or self-care (01) ==
LOC: DL.ED 12:59
DX: E87.6 Hypokalemia (principal); K21.9 Gastro-esophageal reflux disease without esophagitis; E78.00 Pure hypercholesterolemia, unspecified; I10 Essential (primary) hypertension; I25.10 Atherosclerotic heart disease of native coronary artery without angina pectoris; Z79.82 Long term (current) use of aspirin; Z79.899 Other long term (current) drug therapy
CPT/HCPCS: 36415; 80048; 96365; 96366; 99284; A9270; J3480; J3490

== ENCOUNTER 2024-07-01 10:54 | Emergency (ER) | payer MEDICARE, OTHER ==
[2024-07-01] MEDS ORDERED: Sodium Chloride 0.9% 10 ML Syringe FLUSH PRN (11:06)
[2024-07-01] MEDS: Iopamidol 755 Mg/ML 100 ML Bottle IV ONE (11:07)
[2024-07-01 11:22] LABS: BASOPHILS PERCENT AUTO 0.2 % (0.0-1.0); EOSINOPHILS PERCENT AUTO 2.5 % (1.0-3.0); HEMATOCRIT 39.1 % (40.0-54.0); LYMPHOCYTES PERCENT AUTO 26.1 % (20.5-50.1); MEAN CORPUSCULAR HEMOGLOBIN 32.3 pg (27.0-34.0); MEAN CORPUSCULAR HGB CONC 33.2 g/dL (33.0-35.0); MEAN CORPUSCULAR VOLUME 97.3 fL (80-100); NEUTROPHILS PERCENT AUTO 60.2 % (42.2-75.2); PLATELET COUNT,PLT 153 10^3/uL (150-450); RED BLOOD CELL COUNT 4.02 10^6/uL (4.6-6.2); WHITE BLOOD CELL COUNT,WBC 4.7 10^3/uL (5.0-10.0)
[2024-07-01 11:41] LABS: INR 1.6 (0.9-1.2); PROTHROMBIN TIME 15.7 SEC (9.0-12.0); PTT,PARTIAL THROMBOPLSTIN TIME 27.9 SEC (22.0-34.0)
[2024-07-01 11:56] LABS: A/G RATIO 1.1; ALANINE AMINOTRANSFERASE,ALT 21 U/L (16-63); ALBUMIN 3.9 g/dL (3.4-5.0); ALKALINE PHOSPHATASE 71 U/L (46-116); ANION GAP 12.8 mEq/L (7-13); ASPARTATE AMNIOTRANSFERASE,AST 19 U/L (15-37); BLOOD UREA NITROGEN,BUN 19 mg/dL (7-18); BUN/CREATININE RATIO 16.1 (No establ ref range); CALCIUM 8.9 mg/dL (8.5-10.1); CARBON DIOXIDE,CO2 27 mmol/L (21-32); CHLORIDE,CL 105 mmol/L (98-107); CREATININE 1.18 mg/dL (0.70-1.30); GLUCOSE RANDOM 95 mg/dL (70-99); POTASSIUM,K 3.8 mmol/L (3.5-5.1); PROTEIN TOTAL,TP 7.6 g/dL (6.4-8.2); SODIUM,NA 141 mmol/L (136-145)
[2024-07-01 11:57] LABS: ESTIMATED GFR 62 mL/min (>=60)
[2024-07-01 12:04] VITALS: BP 148/94; PULSE 65
[2024-07-01 12:09] LABS: APPEARANCE,URINE CLEAR (CLEAR); BILIRUBIN,URINE NEGATIVE (NEGATIVE); COLOR,URINE YELLOW (YELLOW); GLUCOSE,URINE NEGATIVE (NEGATIVE); KETONES,URINE NEGATIVE (NEGATIVE); LEUKOCYTE ESTERASE,URINE NEGATIVE (NEGATIVE); NITRITE,URINE NEGATIVE (NEGATIVE); OCCULT BLOOD,URINE NEGATIVE (NEGATIVE); PH,URINE 6.5 (5.0-9.0); PROTEIN,URINE NEGATIVE (NEGATIVE); UROBILINOGEN,URINE 0.2 mg/dL (0.2-1.0)
[2024-07-01] MEDS: Aspirin 81 MG Tab.Chew PO ONE (13:18)
== END 2024-07-01 13:29 | disposition home or self-care (01) ==
LOC: DL.ED 10:54
DX: R42 Dizziness and giddiness (principal); I25.10 Atherosclerotic heart disease of native coronary artery without angina pectoris; I10 Essential (primary) hypertension; E78.00 Pure hypercholesterolemia, unspecified; Z79.82 Long term (current) use of aspirin; Z79.899 Other long term (current) drug therapy
CPT/HCPCS: 36415; 70450; 70496; 70498; 71046; 80053; 81003; 82947; 83735; 84484; 85025; 85610; 85730; 93005; 99285; A9270; Q9967

== ENCOUNTER 2025-01-14 04:27 | Emergency (ER) | payer MEDICARE, OTHER ==
[2025-01-14 04:56] VITALS: BP 148/90; PULSE 80
== END 2025-01-14 04:53 | disposition home or self-care (01) ==
LOC: DL.ED 04:27
DX: Z02.89 Encounter for other administrative examinations (principal); I48.91 Unspecified atrial fibrillation; I25.10 Atherosclerotic heart disease of native coronary artery without angina pectoris; I10 Essential (primary) hypertension; Z90.49 Acquired absence of other specified parts of digestive tract; Z79.82 Long term (current) use of aspirin; Z79.899 Other long term (current) drug therapy
CPT/HCPCS: 99283

== ENCOUNTER 2025-04-29 22:32 | Emergency (ER) | payer MEDICARE, OTHER ==
[2025-04-29 22:53] VITALS: BP 139/85; PULSE 98
== END 2025-04-29 23:21 | disposition home or self-care (01) ==
LOC: DL.ED 22:32
DX: R00.0 Tachycardia, unspecified (principal); Z71.1 Person with feared health complaint in whom no diagnosis is made; Z79.82 Long term (current) use of aspirin; Z79.899 Other long term (current) drug therapy; Z90.49 Acquired absence of other specified parts of digestive tract; I25.10 Atherosclerotic heart disease of native coronary artery without angina pectoris; I48.91 Unspecified atrial fibrillation; E78.00 Pure hypercholesterolemia, unspecified; I10 Essential (primary) hypertension; K21.9 Gastro-esophageal reflux disease without esophagitis
CPT/HCPCS: 99284

== ENCOUNTER 2025-05-24 04:19 | Emergency (ER) | payer MEDICARE, OTHER ==
[2025-05-24 04:57] LABS: BASOPHILS PERCENT AUTO 0.2 % (0.0-1.0); EOSINOPHILS PERCENT AUTO 2.5 % (1.0-3.0); LYMPHOCYTES PERCENT AUTO 25.4 % (20.5-50.1); MONOCYTES PERCENT AUTO 11.9 % (2-8); NEUTROPHILS PERCENT AUTO 60.0 % (42.2-75.2); PLATELET COUNT,PLT 156 10^3/uL (150-450); RED BLOOD CELL COUNT 3.84 10^6/uL (4.6-6.2); WHITE BLOOD CELL COUNT,WBC 5.3 10^3/uL (5.0-10.0)
[2025-05-24 05:14] LABS: INR 2.3 (0.9-1.2)
[2025-05-24 05:18] LABS: B-TYPE NATRIURETIC PEPTIDE,BNP 71.0 pg/ml (0-100)
[2025-05-24 05:23] LABS: A/G RATIO 1.0; ALANINE AMINOTRANSFERASE,ALT 15.0 U/L (16-63); ASPARTATE AMNIOTRANSFERASE,AST 19.0 U/L (15-37); BILIRUBIN TOTAL 0.8 mg/dL (0.2-1.0); BLOOD UREA NITROGEN,BUN 14.0 mg/dL (7-18); CARBON DIOXIDE,CO2 29.0 mmol/L (21-32); CHLORIDE,CL 107.0 mmol/L (98-107); CREATININE 1.3 mg/dL (0.70-1.30); EST CRCL DRUG DOSING (CG) 45.86 mL/min; GLUCOSE RANDOM 99.0 mg/dL (70-99); POTASSIUM,K 3.9 mmol/L (3.5-5.1); PROTEIN TOTAL,TP 7.3 g/dL (6.4-8.2); SODIUM,NA 145.0 mmol/L (136-145)
[2025-05-24 05:26] LABS: ESTIMATED GFR 55.0 mL/min (>=60)
[2025-05-24 05:43] VITALS: PULSE 70
[2025-05-24 05:45] VITALS: BP 147/83
== END 2025-05-24 05:40 | disposition home or self-care (01) ==
LOC: DL.ED 04:19
DX: R07.89 Other chest pain (principal); M54.6 Pain in thoracic spine; I10 Essential (primary) hypertension; K21.9 Gastro-esophageal reflux disease without esophagitis; E78.00 Pure hypercholesterolemia, unspecified; Z79.82 Long term (current) use of aspirin; Z79.899 Other long term (current) drug therapy; Z90.49 Acquired absence of other specified parts of digestive tract
CPT/HCPCS: 36415; 71045; 80053; 83880; 84484; 85025; 85610; 93005; 93010; 99284; 99285